=== PATIENT | female | born 1960 | race Caucasian/White ===

== ENCOUNTER 2016-09-23 13:54 | Outpatient (CLI) | payer MEDICARE, MEDICAID | END 2016-09-23 13:55 | disposition home or self-care (01) | DX: I10 Essential (primary) hypertension (principal); F17.210 Nicotine dependence, cigarettes, uncomplicated; D64.9 Anemia, unspecified ==

== ENCOUNTER 2017-11-02 10:12 | Outpatient (CLI) | payer MEDICARE, MEDICAID ==
[2017-11-02 13:05] LABS: BASOPHILS % (AUTO) 0.3 %; EOSINOPHILS # (AUTO) 0.2 10^3/uL (0.0-0.7); EOSINOPHILS % (AUTO) 1.8 %; HGB - HEMOGLOBIN 14.5 g/dL (12.0-16.0); LYMPHOCYTES # (AUTO) 2.7 10^3/uL (1.5-3.5); MEAN CORPUSCULAR HEMOGLOBIN 31.5 pg (27.0-31.0); MEAN CORPUSCULAR HGB CONC 33.7 g/dL (32.0-36.0); MEAN CORPUSCULAR VOLUME 93.4 fL (81.0-99.0); MEAN PLATELET VOLUME 9.4 fL (7.9-10.8); MONOCYTES # (AUTO) 0.4 10^3/uL (0.0-1.0); MONOCYTES % (AUTO) 4.1 %; NEUTROPHILS % (AUTO) 64.8 %; PLT - PLATELET COUNT 182 10^3/uL (130-450); RED CELL DISTRIBUTION WIDTH 13.1 % (12.0-15.0); WHITE BLOOD COUNT 9.2 x10^3/uL (4.8-10.8)
[2017-11-02 13:25] LABS: ALBUMIN 4.2 g/dL (3.2-5.5); ALBUMIN/GLOBULIN RATIO 1.8 (1.0-2.2); ALKALINE PHOSPHATASE 99 IU/L (42-121); ALT ALANINE AMINOTRANSFERASE 18 IU/L (10-60); AST ASPARTATE AMINOTRANSFERASE 18 IU/L (10-42); BILIRUBIN,TOTAL 0.5 mg/dL (0.2-1.0); BUN - BLOOD UREA NITROGEN 11 mg/dL (6-20); CALCIUM 9.8 mg/dL (8.5-10.3); CARBON DIOXIDE - CO2 25 mmol/L (21-32); CHLORIDE 105 mmol/L (101-111); CHOL/HDL RATIO 5.2 (<4.4); CHOLESTEROL 150 mg/dL; CREATININE 0.8 mg/dL (0.4-1.0); GFR - MDRD 75 (>89); GLUCOSE 100 mg/dL (70-100); HDL CHOLESTEROL 29 mg/dL; LDL CHOLESTEROL,CALCULATED 89 mg/dL; LDL/HDL RATIO 3.1 (<4.4); SODIUM 136 mmol/L (135-145); TOTAL PROTEIN 6.6 g/dL (6.7-8.2); VLDL CHOLESTEROL 32 mg/dL
[2017-11-02 13:51] LABS: HB2 TOTAL 16.3 g/dL; HEMOGLOBIN A1C 0.57 g/dL; HEMOGLOBIN A1C % 5.4 % (4.6-6.2)
== END 2017-11-02 10:13 | disposition home or self-care (01) ==
LOC: LAB.N 10:12
PROVIDERS: ATTEND Family Medicine
DX: I10 Essential (primary) hypertension (principal); R73.01 Impaired fasting glucose; G89.4 Chronic pain syndrome; E78.1 Pure hyperglyceridemia
CPT/HCPCS: 36415; 80053; 80061; 83036; 83721; 84443; 85025

== ENCOUNTER 2018-03-02 16:22 | Outpatient (CLI) | payer OTHER, MEDICARE, MEDICAID | END 2018-03-02 16:23 | disposition critical access hospital (66) | LOC: EMS 16:22 | PROVIDERS: ATTEND Surgery | DX: M54.5 Low back pain (principal); M25.511 Pain in right shoulder; V48.5XXA Car driver injured in noncollision transport accident in traffic accident, initial encounter; Y92.410 Unspecified street and highway as the place of occurrence of the external cause | CPT/HCPCS: A0425; A0429 ==

== ENCOUNTER 2018-03-02 16:51 | Emergency (ER) | payer OTHER, MEDICARE, MEDICAID ==
[2018-03-02] MEDS ORDERED: ACETAMINOPHEN 325 MG TABLET PO STA (17:13)
[2018-03-02] MEDS ORDERED: LIDOCAINE PATCH 5% TOP PRN (17:13)
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
[2018-03-02 17:29] VITALS: BP 105/67
== END 2018-03-02 17:46 | disposition home or self-care (01) ==
LOC: EDUNIT# → ED 16:51
DX: M54.5 Low back pain (principal); V89.2XXA Person injured in unspecified motor-vehicle accident, traffic, initial encounter; Z79.899 Other long term (current) drug therapy
CPT/HCPCS: 99283; A9270

== ENCOUNTER 2019-03-06 23:46 | Outpatient (CLI) | payer MEDICARE, MEDICAID | END 2019-03-06 23:47 | disposition EMS.NT | LOC: EMS 23:46 | PROVIDERS: ATTEND Surgery | DX: R05 Cough (principal) ==

== ENCOUNTER 2019-10-24 11:53 | Emergency (ER) | payer MEDICARE, MEDICAID ==
[2019-10-24 12:14] VITALS: BP 146/89
--- NOTE | 2019-10-24 12:33 | ED Physician Documentation ---
History of Present Illness - Stated complaint Stated Complaint: SORE THROAT/DENTAL - History obtained from History obtained from: Patient (58-year-old female comes in today with chief complaint of 1 week lower left dental pain, now having some swelling in the left mandible region. She fine was able to get into see her dentist today and he examined her and said that she needed to be seen by an oral surgeon to have the teeth extracted and sent her to the ER to get antibiotic treatment. Patient states that over the past week she denies fevers, nausea, vomiting, foul taste in her mouth, chills, chest pain, palpitations. She does admit to some sweating, but she said this is normal for her. She also has had a headache sporadically over the past week. She has been medicated with ibuprofen 800 mg 3-4 times a day, with some relief of the pain. She admits to having long his tory of dental issues, not having money or insurance to take care of them. She is here today hoping to get antibiotics until she can get into see an oral surgeon.) Review of Systems Constitutional: reports: Sweats (This is normal for her.). denies: Fever, Chills, Fatigue Eyes: reports: Reviewed and negative Ears: denies: Ear pain, Drainage/discharge Nose: reports: Sinus pressure / pain. denies: Rhinorrhea / runny nose, Congestion Throat: reports: Dental pain / toothache. 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 HEENT: Tonsil/Adenoidectomy - Present Medications Home Medications: Ambulatory Orders Medication Instructions Recorded Confirmed DULoxetine [Cymbalta] 90 mg PO DAILY 10/17/13 10/29/15 Lamotrigine 50 mg PO DAILY 10/17/13 08/24/15 Pregabalin [Lyrica] 600 mg PO DAILY PM 10/17/13 10/29/15 Lisinopril 20 mg PO QPM 06/28/14 10/29/15 [place] Carbonate 900 mg PO QPM 06/28/14 10/29/15 Lurasidone HCl [Latuda] 40 mg PO QPM 06/28/14 10/29/15 Prazosin [Minipress] 5 mg PO QPM 06/28/14 10/29/15 diazePAM [Diazepam] 5 mg PO TID PRN 06/28/14 10/29/15 Albuterol Sulf [Ventolin Hfa 2 puffs Q4H PRN 10/24/19 10/24/19 Inhaler] Fluticasone [Flonase] 1 spray DAILY 10/24/19 10/24/19 HYDROcod/ACETAM 5/325 [[place] 5/325] 1 each PO Q4H #12 tablet 10/24/19 Penicillin V Potassium 500 mg PO Q6HR #40 tablet 10/24/19 Pramipexole [Mirapex] 0.5 mg QPM 10/24/19 10/24/19 - Allergies Allergies/Adverse Reactions: Allergies Allergy/AdvReac Type Severity Reaction Status Date / Time NSAIDS (Non-Steroidal AdvReac Severe stomach Verified 10/24/19 12:14 Anti-Inflamma pain - Social History Does the pt smoke?: Yes Smoking Status: Current every day smoker Does the pt drink ETOH?: No Does the pt have substance abuse?: No - Immunizations Immunizations are current?: Yes - POLST Patient has POLST: No PD ED PE NORMAL - General General: Alert and oriented X 3, No acute distress, Well developed/nourished - HEENT HEENT: Atraumatic, PERRL, EOMI, Ears normal, Moist mucous membranes - Cardiac Cardiac: RRR, No murmur - Respiratory Respiratory: No respiratory distress, Clear bilaterally - Derm Derm: Normal color, Warm and dry, No rash PD ED PE EXPANDED - HEENT HEENT: Dental decay. No: Dental abscess Results - Vitals Vitals: Vital Signs - 24 hr 10/24/19 12:03 Temperature 35 C L Heart Rate 94 Respiratory 18 Rate Blood Pressure 146/89 H O2 Saturation 94 Oxygen O2 Source Room air PD MEDICAL DECISION MAKING - ED course Complexity details: d/w patient Departure - Departure Disposition: 01 Home, Self Care Clinical Impression: Dental infection Condition: Good Instructions: Decay Tooth, ED Abscess Tooth Follow-Up: James Rico DDS [Provider Admit Priv/Credential] - Prescriptions: Penicillin V Potassium 500 mg PO Q6HR #40 tablet HYDROcod/ACETAM 5/325 [[place] 5/325] 1 each PO Q4H #12 tablet Comments: You have a dental caries in the lower jaw, with tooth decay. Secondary to that you have an infection now. Like a dentist said you need to see an oral surgeon to have that tooth extracted. In the meantime we will start her on antibiotics to take 4 times a day for 10 days. Continue to take ibuprofen 3 times a day for pain control. He can also gargle with salt water to help reduce infection.
== END 2019-10-24 12:55 | disposition home or self-care (01) ==
LOC: ED 11:53
DX: K04.7 Periapical abscess without sinus (principal); K02.9 Dental caries, unspecified; I10 Essential (primary) hypertension; F17.200 Nicotine dependence, unspecified, uncomplicated
CPT/HCPCS: 99282; 99284

== ENCOUNTER 2020-09-16 08:00 | Outpatient (CLI) | payer MEDICARE, MEDICAID ==
[2020-09-16 17:52] LABS: BASOPHILS % (AUTO) 0.3 %; EOSINOPHILS # (AUTO) 0.1 10^3/uL (0.0-0.7); EOSINOPHILS % (AUTO) 1.4 %; HGB - HEMOGLOBIN 14.7 g/dL (12.0-16.0); LYMPHOCYTES % (AUTO) 34.9 %; MEAN CORPUSCULAR HEMOGLOBIN 31.3 pg (27.0-31.0); MEAN CORPUSCULAR VOLUME 95.1 fL (81.0-99.0); MEAN PLATELET VOLUME 11.1 fL (7.9-10.8); MONOCYTES # (AUTO) 0.4 10^3/uL (0.0-1.0); MONOCYTES % (AUTO) 4.8 %; NEUTROPHILS % (AUTO) 58.3 %; PLT - PLATELET COUNT 236 10^3/uL (130-450); RED BLOOD COUNT 4.69 10^6/uL (4.20-5.40); RED CELL DISTRIBUTION WIDTH 11.6 % (12.0-15.0); WHITE BLOOD COUNT 8.6 x10^3/uL (4.8-10.8)
[2020-09-16 18:13] LABS: ALBUMIN 4.3 g/dL (3.2-5.5); ALBUMIN/GLOBULIN RATIO 1.7 (1.0-2.2); ALKALINE PHOSPHATASE 122 IU/L (42-121); ALT ALANINE AMINOTRANSFERASE 19 IU/L (10-60); AST ASPARTATE AMINOTRANSFERASE 17 IU/L (10-42); BILIRUBIN,TOTAL 0.9 mg/dL (0.2-1.0); BUN - BLOOD UREA NITROGEN 11 mg/dL (6-20); CALCIUM 10.1 mg/dL (8.5-10.3); CARBON DIOXIDE - CO2 21 mmol/L (21-32); CHLORIDE 94 mmol/L (101-111); CHOL/HDL RATIO 6.4 (<4.4); CHOLESTEROL 216 mg/dL; CREATININE 0.7 mg/dL (0.4-1.0); GLUCOSE 287 mg/dL (70-100); HDL CHOLESTEROL 34 mg/dL; LDL CHOLESTEROL,CALCULATED 114 mg/dL; LDL/HDL RATIO 3.4 (<4.4); TOTAL PROTEIN 6.9 g/dL (6.7-8.2); VLDL CHOLESTEROL 68 mg/dL
[2020-09-16 20:15] LABS: HEMOGLOBIN A1c% 12.4 % (4.27-6.07)
== END 2020-09-16 23:59 | disposition home or self-care (01) ==
LOC: LAB.WCP 08:00
PROVIDERS: ATTEND Nurse Practitioner Family
DX: E78.1 Pure hyperglyceridemia (principal); I10 Essential (primary) hypertension; R73.01 Impaired fasting glucose; F31.30 Bipolar disorder, current episode depressed, mild or moderate severity, unspecified
CPT/HCPCS: 36415; 80053; 80061; 80178; 83036; 83721; 84443; 85025

== ENCOUNTER 2020-10-14 13:47 | Outpatient (CLI) | payer MEDICARE, MEDICAID ==
--- NOTE | 2020-10-16 08:38 | Mammography Report ---
BILATERAL DIGITAL SCREENING MAMMOGRAM: 10/14/2020 CLINICAL: Routine screening. No prior exams were available for comparison. There are scattered fibroglandular elements in both br easts. No significant masses, calcifications, or other findings are seen in either breast. IMPRESSION: NEGATIVE There is no mammographic evidence of malignancy. A 1 year screening mammogram is recommended. This exam was interpreted at Station ID: [id number]. NOTE: For mammograms, a report in lay terms will be sent to the patient. Approximately 15% of breast malignancies will not be visualized mammographically. In the management of a palpable breast mass, a negative mammogram must not discourage biopsy of a clinically suspicious lesion. Electronically Signed By: Luke flores/raisa:10/14/2020 15:25:18 ACR BI-RADS Category 1: Negative 3341F PARENCHYMAL PATTERN: (A) - The breast(s) demonstrate(s) scattered fibroglandular densities. BI-RADS CATEGORY: (1) - 1 RECOMMENDATION: (ANNUAL) - Recommend routine annual screening mammography. [id number] 1 year screening LATERALITY: (B)
== END 2020-10-14 13:48 | disposition home or self-care (01) ==
LOC: DI.N 13:47
DX: Z12.31 Encounter for screening mammogram for malignant neoplasm of breast (principal)

== ENCOUNTER 2020-12-12 08:00 | Outpatient (CLI) | payer MEDICARE, MEDICAID ==
[2020-12-12 18:03] LABS: CALCIUM 10.7 mg/dL (8.5-10.3); CREATININE 0.7 mg/dL (0.4-1.0); POTASSIUM 4.6 mmol/L (3.5-5.0)
[2020-12-12 20:41] LABS: ESTIMATED AVERAGE GLUCOSE 212 mg/dL (70-100)
== END 2020-12-12 23:59 | disposition home or self-care (01) ==
LOC: LAB.WCP 08:00
PROVIDERS: ATTEND Nurse Practitioner Family
DX: E11.9 Type 2 diabetes mellitus without complications (principal)
CPT/HCPCS: 36415; 80048; 83036

== ENCOUNTER 2021-03-17 15:52 | Outpatient (CLI) | payer MEDICARE, MEDICAID ==
[2021-03-17] MEDS ORDERED: IOVERSOL 320 50 ML VIAL ONE (15:58)
[2021-03-17] MEDS ORDERED: IOPAMIDOL-300 100 ML VIAL ONE (15:58)
[2021-03-17 16:13] LABS: CREATININE 0.8 mg/dL (0.4-1.0); GFR - MDRD 74 (>89)
[2021-03-17] MEDS ORDERED: IOPAMIDOL-300 100 ML VIAL IVP ONE (17:27)
[2021-03-17] MEDS ORDERED: IOVERSOL 320 50 ML VIAL PO ONE (17:28)
--- NOTE | 2021-03-17 17:31 | CT Report ---
PROCEDURE: Abdomen/Pelvis W INDICATIONS: ABDOMINAL PAIN,ACUTE CONTRAST: IV CONTRAST: Isovue 300 ml: 100 PO CONTRAST: Optiray 320 ml50 TECHNIQUE: After the administration of contrast, 5 mm thick sections acquired from the diaphragms to the sym physis. 5 mm thick coronal and sagittal reformats were acquired. For radiation dose reduction, the following was used: automated exposure control, adjustment of mA and/or kV according to patient size . COMPARISON: None. FINDINGS: Image quality: Excellent. ABDOMEN: Lung bases: Lung bases are clear. Heart size is normal. Solid organs: Liver and spleen are normal in size and enhancement. Gallbladder the gallbladder cont ains multiple internal moderately large faintly peripherally calcified gallstones. No acute cholecyst itis or biliary obstruction. Biliary system is non dilated. Pancreas enhances normally. No adrenal nodules. Kidneys demonstrate normal size and enhancement, without hydronephrosis. Peritoneum and bowel: Bowel loops demonstrate normal wall thickness and caliber. No free fluid or a ir. Nodes and vessels: No retroperitoneal or mesenteric adenopathy by size criteria. Aorta and inferior vena cava are normal in size. Miscellaneous: No ventral hernias. PELVIS: Genitourinary: Bladder wall thickness is normal. Miscellaneous: No inguinal hernias or adenopathy. There is a very large cystic septated mass lesion within the lower pelvis, extending cephalad slightly greater on the right than the left, this has a maximal AP and transverse dimension of 19.7 cm and 27.2 cm, respectively. The craniocaudad dimension of this structure is up to 24.6 cm. Bones: No suspicious bony lesions. No vertebral body compression fractures. IMPRESSION: Very large septated cystic mass within the lower pelvis projecting cephalad out of the p aaron slightly more on the right than the left which would indicate potential for right ovarian cysti c benign or malignant neoplasm. There is no evidence of metastatic disease, however. Findings called to the ordering health care provider. Oncologic surgical intervention is anticipated. Reviewed by: Renny Yeager MD on 03/17/2021 5:30 PM PDT Approved by: Renny Yeager MD on 03/17/2021 5:30 PM PDT Station ID: [id number]
[2021-03-19 08:17] LABS: ALBUMIN 3.9 g/dL (3.2-5.5); ALBUMIN/GLOBULIN RATIO 1.3 (1.0-2.2); ALKALINE PHOSPHATASE 114 IU/L (42-121); ALT ALANINE AMINOTRANSFERASE 42 IU/L (10-60); AMYLASE 27 U/L (28-100); AST ASPARTATE AMINOTRANSFERASE 41 IU/L (10-42); BILIRUBIN,TOTAL 0.5 mg/dL (0.2-1.0); BUN - BLOOD UREA NITROGEN 13 mg/dL (6-20); CALCIUM 10.8 mg/dL (8.5-10.3); CARBON DIOXIDE - CO2 21 mmol/L (21-32); CHLORIDE 108 mmol/L (101-111); CHOL/HDL RATIO 6.8 (<4.4); CHOLESTEROL 224 mg/dL; GLUCOSE 170 mg/dL (70-100); HDL CHOLESTEROL 33 mg/dL; LDL CHOLESTEROL,CALCULATED 134 mg/dL; LDL/HDL RATIO 4.1 (<4.4); LIPASE 67 U/L (22-51); POTASSIUM 4.5 mmol/L (3.5-5.0); SODIUM 140 mmol/L (135-145); TRIGLYCERIDES 286 mg/dL; VLDL CHOLESTEROL 57 mg/dL
[2021-03-19 08:22] LABS: THYROID STIMULATING HORMONE 1.97 uIU/mL (0.34-5.60)
== END 2021-03-17 15:53 | disposition home or self-care (01) ==
LOC: DI 15:52
PROVIDERS: ATTEND Nurse Practitioner
DX: R19.00 Intra-abdominal and pelvic swelling, mass and lump, unspecified site (principal); R10.9 Unspecified abdominal pain
CPT/HCPCS: 36415; 74177; 80053; 80061; 82150; 83690; Q9967; 82565; 83721; 84443

== ENCOUNTER 2021-03-19 16:45 | Outpatient (CLI) | payer MEDICARE, MEDICAID ==
[2021-03-19 20:50] LABS: BILIRUBIN,URINE NEGATIVE (NEGATIVE); GLUCOSE, URINE (UA) >=1000 mg/dL (NEGATIVE); KETONES,URINE (UA) NEGATIVE (NEGATIVE); LEUKOCYTE ESTERASE, URINE NEGATIVE (NEGATIVE); NITRITE,URINE NEGATIVE (NEGATIVE); OCCULT BLOOD,URINE NEGATIVE (NEGATIVE); PROTEIN,URINE NEGATIVE (NEGATIVE); UROBILINOGEN,URINE 1 (NORMAL) E.U./dL (NORMAL)
[2021-03-19 20:51] LABS: CLARITY,URINE CLEAR (CLEAR)
[2021-03-19 20:57] LABS: BASOPHILS # (AUTO) 0.1 10^3/uL (0.0-0.1); BASOPHILS % (AUTO) 0.5 %; EOSINOPHILS # (AUTO) 0.2 10^3/uL (0.0-0.7); EOSINOPHILS % (AUTO) 1.6 %; HCT - HEMATOCRIT 49.7 % (37.0-47.0); HGB - HEMOGLOBIN 15.4 g/dL (12.0-16.0); LYMPHOCYTES # (AUTO) 3.5 10^3/uL (1.5-3.5); LYMPHOCYTES % (AUTO) 27.4 %; MEAN CORPUSCULAR HEMOGLOBIN 30.3 pg (27.0-31.0); MEAN CORPUSCULAR VOLUME 97.8 fL (81.0-99.0); MONOCYTES # (AUTO) 0.6 10^3/uL (0.0-1.0); MONOCYTES % (AUTO) 4.8 %; NEUTROPHILS # (AUTO) 8.4 10^3/uL (1.5-6.6); NEUTROPHILS % (AUTO) 65.2 %; PLT - PLATELET COUNT 276 10^3/uL (130-450); RED BLOOD COUNT 5.08 10^6/uL (4.20-5.40); RED CELL DISTRIBUTION WIDTH 12.8 % (12.0-15.0); WHITE BLOOD COUNT 12.8 x10^3/uL (4.8-10.8)
[2021-03-19 21:03] LABS: ALBUMIN 4.2 g/dL (3.2-5.5); ALBUMIN/GLOBULIN RATIO 1.7 (1.0-2.2); BILIRUBIN,TOTAL 0.4 mg/dL (0.2-1.0); CALCIUM 10.4 mg/dL (8.5-10.3); CREATININE 0.9 mg/dL (0.4-1.0); POTASSIUM 4.1 mmol/L (3.5-5.0); TOTAL PROTEIN 6.7 g/dL (6.7-8.2)
== END 2021-03-19 16:46 | disposition home or self-care (01) ==
LOC: LAB.N 16:45
PROVIDERS: ATTEND Nurse Practitioner
DX: R10.9 Unspecified abdominal pain (principal)
CPT/HCPCS: 36415; 80053; 81001; 81003; 85025; 87086

== ENCOUNTER 2021-04-07 08:00 | Outpatient (CLI) | payer MEDICARE, MEDICAID ==
[2021-04-07 17:50] LABS: BILIRUBIN,URINE NEGATIVE (NEGATIVE); GLUCOSE, URINE (UA) NEGATIVE (NEGATIVE); KETONES,URINE (UA) NEGATIVE (NEGATIVE); LEUKOCYTE ESTERASE, URINE NEGATIVE (NEGATIVE); NITRITE,URINE NEGATIVE (NEGATIVE); OCCULT BLOOD,URINE NEGATIVE (NEGATIVE); PH,URINE 6.5 PH (5.0-7.5); PROTEIN,URINE 30 mg/dL (NEGATIVE); UROBILINOGEN,URINE 0.2 (NORMAL) E.U./dL (NORMAL)
[2021-04-07 17:52] LABS: BASOPHILS # (AUTO) 0.1 10^3/uL (0.0-0.1); BASOPHILS % (AUTO) 0.5 %; EOSINOPHILS # (AUTO) 0.1 10^3/uL (0.0-0.7); HCT - HEMATOCRIT 43.6 % (37.0-47.0); HGB - HEMOGLOBIN 13.6 g/dL (12.0-16.0); LYMPHOCYTES # (AUTO) 3.1 10^3/uL (1.5-3.5); MEAN CORPUSCULAR HEMOGLOBIN 30.2 pg (27.0-31.0); MEAN CORPUSCULAR HGB CONC 31.2 g/dL (32.0-36.0); MEAN CORPUSCULAR VOLUME 96.7 fL (81.0-99.0); MEAN PLATELET VOLUME 11.3 fL (7.9-10.8); MONOCYTES # (AUTO) 0.6 10^3/uL (0.0-1.0); MONOCYTES % (AUTO) 4.6 %; NEUTROPHILS % (AUTO) 69.5 %; PLT - PLATELET COUNT 262 10^3/uL (130-450); RED BLOOD COUNT 4.51 10^6/uL (4.20-5.40); RED CELL DISTRIBUTION WIDTH 13.1 % (12.0-15.0)
[2021-04-07 17:58] LABS: CLARITY,URINE CLEAR (CLEAR); RBC,URINE 0-5 /HPF (0-5); SQUAMOUS EPITHELIAL CELL,UR MOD Squamous (<= Few); WBC,URINE 0-3 /HPF (0-5)
[2021-04-07 17:59] LABS: BACTERIA,URINE Few /HPF (None Seen); MUCUS,URINE Moderate Strands
[2021-04-07 18:09] LABS: ALBUMIN 3.9 g/dL (3.2-5.5); ALBUMIN/GLOBULIN RATIO 1.3 (1.0-2.2); BILIRUBIN,TOTAL 0.5 mg/dL (0.2-1.0); CALCIUM 10.8 mg/dL (8.5-10.3); CREATININE 0.7 mg/dL (0.4-1.0); POTASSIUM 4.4 mmol/L (3.5-5.0); TOTAL PROTEIN 6.8 g/dL (6.7-8.2)
[2021-04-07 18:23] LABS: CREATININE,URINE 118.4 mg/dL; MICROALBUM/CREATININE RATIO,UR 365.7 ug/mg (<30.0); MICROALBUMIN,URINE 43.3 mg/dL (0-300.0)
[2021-04-07 20:27] LABS: ESTIMATED AVERAGE GLUCOSE 154 mg/dL (70-100)
== END 2021-04-07 23:59 | disposition home or self-care (01) ==
LOC: LAB.WCP 08:00
PROVIDERS: ATTEND Nurse Practitioner
DX: R19.00 Intra-abdominal and pelvic swelling, mass and lump, unspecified site (principal); E11.9 Type 2 diabetes mellitus without complications
CPT/HCPCS: 36415; 80053; 81001; 82043; 82570; 83036; 85025; 86304; 87086

== ENCOUNTER 2021-04-16 10:28 | Outpatient (CLI) | payer MEDICARE, MEDICAID ==
[2021-04-16] MEDS ORDERED: AMINOPHYLLINE 500 MG/20 ML VIAL ONE (12:57)
[2021-04-16] MEDS ORDERED: REGADENOSON 0.4 MG/5 ML SYRINGE IVP ONE ×2 (12:57→16:14)
--- NOTE | 2021-04-16 12:57 | CARDIAC PROCEDURE NOTE ---
Stress Test Report Service Date: 04/16/21 Service Time: 12:30 Ordering Provider: Cristiana Quintana ARNP Indication for Test: Cardiac risk stratification for patient with multiple risk factors and reportedly abnormal EKG, in preparation for exploratory laparotomy for abdominal mass. Significant Medical History: -Martina reports limited exertional tolerance over several years, primarily in due to back and hip pain. About 6 months ago she was diagnosed with diabetes and trialed on several medications, one of which (Jardiance) was associated with abdominal pain. CT imaging revealed a large abdomino-pelvic mass, suspicious for ovarian origin, and for which exploratory laparotomy is beng planned. EKG that was obtained was reportedly concerning for prior myocardial infarction. -She reports progressive decrease in exertional tolerance over the past ~2 months, which limits her even further than before. She experiences dyspnea with mild exertion, but denies chest/throat/epigastric discomfort, as well as orthopnea, PND and ankle edema. She is cutting down on cigarette intake, and obtains some benefit from prn albuterol use. Cardiac Risk Factors: Martina has history of hypertension treated for at least 5 years, cigarette smoking for about 12 years (trying to quit), hyperlipidemia (not on statin) and recently (~6 months) diagnosed diabetes. She is unaware of close relatives having ASCVD history. Type of Stress Test: Pharmacologic Stress Test with MPI Pharmacologic Agent: Lexiscan Procedure: -Pharmacologic Stress Test- After signing informed consent, the patient underwent rest SPECT imaging, followed by a walking Lexiscan pharmacologic stress test. The test was terminated due to completing the protocol. Resting heart rate: 121 Peak heart rate: 158 Resting tachycardia with exaggerated HR response. Resting BP: 126/74 (after walking) Peak BP: 119/55 Normal BP response. Rhythm during testing: Sinus rhythm throughout. Symptoms: Very slight lightheadedness. EKG at rest showed normal sinus rhythm, diffusely low QRS voltages and left axis deviation, latter possibly due to left anterior fascicular block (LAFB) versus prior inferior infarct; there is also abnormal precordial R wave progression, that could also be a result of LAFB versus prior anterior infarct. EKG at peak stress showed no ischemia by EKG criteria. In Recovery heart rate gradually returned towards resting level. Nuclear imaging was performed at rest and with stress. The images are to be reported separately. IMarco MD, was present throughout this Lexiscan stress study and supervised it in all aspects. Summary: 1) Abnormal resting EKG. 2) Adequate stress was likely achieved. 3) Normal BP response to pharmacologic stress agent. 4) No ischemic changes by EKG criteria were seen at peak stress. 5) Nuclear image interpretation revealed normal left ventricular size and wall motion by gated analysis, with normal range ejection fraction; by SPECT analysis there were no perfusion defects at rest or with stress, indicative of no prior infarct nor inducible ischemia. See separate report for more detail. CONCLUSIONS: 1) Low risk Lexiscan vasodilator stress study. 2) EKG abnormalities likely due to left anterior fascicular block conduction abnormality.
--- NOTE | 2021-04-20 09:14 | Nuclear Medicine Report ---
PROCEDURE: Rest and exercise myocardial perfusion SPECT with gated imaging and ejection fraction INDICATIONS: ABNORMAL EKG RADIOPHARMACEUTICAL: 12.1 mCi Tc-99m Myoview IV at rest and 40.2 mCi Tc-99m Myoview IV at peak stres s. [id number] with Esequiel was performed. TECHNIQUE: Radiopharmaceutical was injected at peak stress test, and also at rest. SPECT images wer e obtained. SPECT myocardial perfusion images were displayed in short axis, horizontal long axis, an d vertical long axis views. Gated images were reviewed using Auto[employer] software. COMPARISON: None available. FINDINGS: Raw data: There is good myocardial labeling by radiotracer. No significant motion artifacts. Lung- to-heart ratio is 0.43 (normal is less than 0.46 for tetrafosmin tracer). Left ventricle function: Gated images demonstrate normal left ventricle wall thickening. No segment al wall motion abnormality. No transient ischemic dilation; TID is 0.94 (normal less than 1.30). Th e left ventricle resting end-diastolic volume is 37 mL. Left ventricle stress ejection fraction is 7 8%; normal values are above 45%. Myocardial perfusion: There is normal distribution of activity in the left and right ventricular gaetano cardium. No fixed or reversible perfusion defects. IMPRESSION: 1. No stress perfusion defect to indicate ischemia. 2. Ejection fraction 78%. 3. No definitive EKG changes of acute ischemia. PQRS ATTESTATIONS: Measure 322 - Is this imaging test primarily performed on a low-risk surgery patient for preoperative evaluation within 30 days preceding their low-risk non-cardiac surgery? Low-risk surgery is defined as cardiac or myocardial infarction less than 1%, including (but not limited EKG changes of is chemia. To) endoscopic procedures, superficial procedures, cataract surgery, and excisional breast [place] rgery: Answer: No Measure 323 - Is this imaging test performed primarily for the monitoring of an asymptomatic patient who had percutaneous coronary intervention on the visit date or within 2 years of the visit date? An swer: No Measure 324 - Is this imaging test performed primarily for the initial detection and risk assessment on an asymptomatic, low coronary heart disease patient? Low CHD risk definition = clinicians should consider the maximum number of available patient factors used to estimate risk based on [place] (A TP III criteria), typically age, gender, diabetes, smoking status, and use of blood pressure medicati on, and integrate age appropriate estimates for missing elements, such as LDL or standard blood press ure. Answer: No Reviewed by: Cecy Rios MD on 04/20/2021 9:13 AM PDT Approved by: Cecy Rios MD on 04/20/2021 9:13 AM PDT Station ID: [id number]
== END 2021-04-16 10:29 | disposition home or self-care (01) ==
LOC: DI 10:28
PROVIDERS: ATTEND Nurse Practitioner
DX: R94.31 Abnormal electrocardiogram [ECG] [EKG] (principal); I10 Essential (primary) hypertension; F17.210 Nicotine dependence, cigarettes, uncomplicated; E78.5 Hyperlipidemia, unspecified; E11.9 Type 2 diabetes mellitus without complications
CPT/HCPCS: 78452; 93017; A9500; J2785

== ENCOUNTER 2021-04-22 16:28 | Outpatient (CLI) | payer MEDICARE, MEDICAID | END 2021-04-22 16:29 | disposition short-term general hospital (02) | LOC: EMS 16:28 | DX: I95.9 Hypotension, unspecified (principal); R17 Unspecified jaundice; H15.89 Other disorders of sclera | CPT/HCPCS: A0425; A0427 ==

== ENCOUNTER 2021-05-20 21:58 | Outpatient (CLI) | payer MEDICARE, MEDICAID | END 2021-05-20 21:59 | disposition critical access hospital (66) | LOC: EMS 21:58 | DX: H55.89 Other irregular eye movements (principal); R46.89 Other symptoms and signs involving appearance and behavior | CPT/HCPCS: A0425; A0429 ==

== ENCOUNTER 2021-05-20 22:14 | Emergency (ER) | payer MEDICARE, MEDICAID ==
[2021-05-20] MEDS ORDERED: SODIUM CHLORIDE 0.9% 1,000 ML IV STA (22:17)
--- NOTE | 2021-05-20 22:19 | ED Physician Documentation ---
History of Present Illness - Stated complaint Stated Complaint: AMS, FIXED RIGHT GAZE - History obtained from History obtained from: Patient, EMS - Additonal information Additional information: 60yF with pmh DM, recently diagnosed pancreatic cancer (not currently in treatment) bibems with 4 hours of AMS and L upward gaze deviation as well as fever detected by EMS. significant other Edinson called ems due to confusion symptoms developing acutely. Note that ems states the significant other was intoxicated with alcohol on their arrival. patient also with septic vital signs on ems arrival. no other neuro deficits noted. patient speaking normally, moving all extremities, AOX3. Her main complaint is abdominal pain she says is ongoing the past few days, diffuse, constant, aching, a/w swelling. also with abscessed tooth X 2 weeks per another family member. stroke code called in the field. further history limited by patient acuity. Review of Systems Unable to obtain: Other (unable to obtain 2/2 acuity) PD PAST MEDICAL HISTORY - Past Medical History Cardiovascular: Hypertension Respiratory: Asthma Psych: Depression, Anxiety, Panic attacks, Claustrophobia Musculoskeletal: Fibromyalgia, Fatigue, Scoliosis, Chronic back pain - Past Surgical History Past Surgical History: Yes /[facility]: Hysterectomy HEENT: Tonsil/Adenoidectomy - Present Medications Home Medications: Ambulatory Orders Medication Instructions Recorded Confirmed DULoxetine [Cymbalta] 30 mg PO DAILY 10/17/13 05/20/21 Lamotrigine 50 mg PO DAILY 10/17/13 05/20/21 Pregabalin [Lyrica] 150 - 300 mg PO DAILY PM 10/17/13 05/20/21 [place] Carbonate 900 mg PO QPM 06/28/14 05/20/21 Lurasidone HCl [Latuda] 40 mg PO QPM 06/28/14 05/20/21 diazePAM [Diazepam] 5 mg PO QID 06/28/14 05/20/21 Albuterol Sulf [Ventolin Hfa 2 puffs Q4H PRN 10/24/19 05/20/21 Inhaler] Fluticasone [Flonase] 1 spray DAILY 10/24/19 05/20/21 HYDROcod/ACETAM 5/325 [[place] 5/325] 1 each PO Q4H #12 tablet 10/24/19 05/20/21 Pramipexole [Mirapex] 0.5 mg QPM 10/24/19 05/20/21 - Allergies Allergies/Adverse Reactions: Allergies Allergy/AdvReac Type Severity Reaction Status Date / Time NSAIDS (Non-Steroidal AdvReac Severe stomach Verified 05/20/21 22:23 Anti-Inflamma pain - Social History Does the pt smoke?: Yes Smoking Status: Current every day smoker Does the pt drink ETOH?: No Does the pt have substance abuse?: No - Immunizations Immunizations are current?: Yes - POLST Patient has POLST: No PD ED PE NORMAL - Vitals Vital signs reviewed: Yes - General General: Alert and oriented X 3, No acute distress, Well developed/nourished, Other - HEENT HEENT: Atraumatic, PERRL, EOMI, Moist mucous membranes, Pharynx benign (poor dentition. no fluctuance or significant swelling), Other (distinct L upward gaze deviation that is easily overcome when patient follows finger for EOMI test.) - Neck Neck: Supple, no meningeal sign - Cardiac Cardiac: RRR - Respiratory Respiratory: No respiratory distress, Clear bilaterally - Abdomen Abdomen: Other (abdomen tight, distended, with discomfort to palpation) - Back Back: No CVA TTP - Derm Derm: Normal color - Extremities Extremities: No deformity - Neuro Neuro: Alert and oriented X 3, principal examiner 2-12 intact, Normal speech, Other (L upward gaze deviation. otherwise no motor or sensory deficits. ) Eye Opening: Spontaneous Motor: Obeys Commands Verbal: Oriented GCS Score: 15 - Psych Psych: Normal mood, Normal affect Results - Vitals Vitals: Vital Signs - 24 hr 05/20/21 05/20/21 05/20/21 22:36 22:39 23:06 Temperature 38.3 C H 38.3 C H Heart Rate 124 H 124 H 124 H Respiratory 22 22 22 Rate Blood Pressure 131/70 H 131/70 H 109/72 O2 Saturation 98 98 98 05/20/21 05/21/21 05/21/21 23:30 00:00 00:30 Temperature 38.1 C H Heart Rate 121 H 123 H 121 H Respiratory 22 26 H 29 H Rate Blood Pressure 127/68 114/67 120/66 O2 Saturation 97 96 94 05/21/21 05/21/21 05/21/21 01:00 01:10 01:30 Temperature Heart Rate 120 H 112 H Respiratory 22 24 23 Rate Blood Pressure 106/58 L 110/60 O2 Saturation 88 L 96 94 05/21/21 05/21/21 05/21/21 02:00 02:30 03:00 Temperature 37.2 C Heart Rate 113 H 114 H 114 H Respiratory 24 26 H 24 Rate Blood Pressure 110/62 113/66 106/60 O2 Saturation 94 96 95 05/21/21 05/21/21 05/21/21 03:30 04:00 04:30 Temperature 37.0 C Heart Rate 114 H 111 H 112 H Respiratory 26 H 25 H 27 H Rate Blood Pressure 107/66 97/60 103/61 O2 Saturation 94 95 98 05/21/21 05/21/21 05/21/21 05:00 05:30 06:00 Temperature 37.1 C Heart Rate 115 H 117 H 113 H Respiratory 23 25 H 22 Rate Blood Pressure 107/60 106/67 109/64 O2 Saturation 95 97 96 05/21/21 05/21/21 05/21/21 06:40 07:00 07:10 Temperature Heart Rate 119 H 123 H 125 H Respiratory 24 28 H 27 H Rate Blood Pressure 102/60 109/71 O2 Saturation 98 93 Oxygen O2 Source Nasal cannula - EKG (time done) 2228 Rate: Rate (enter#) (123) Rhythm: Sinus tachycardia [place]: LAD Intervals: Normal IN QRS: Normal Ischemia: Normal ST segments - Labs Labs: Microbiology 05/21/21 02:02 Occult Blood - Final Stool Laboratory Tests 05/20/21 05/20/21 05/20/21 22:35 22:35 22:35 WBC RBC Hgb Hct MCV MCH MCHC RDW Plt Count MPV Neut # (Auto) Lymph # (Auto) Mcminn # (Auto) Eos # (Auto) Baso # (Auto) Absolute Nucleated RBC Nucleated RBC % PT INR APTT VBG pH VBG pCO2 VBG pO2 VBG HCO3 VBG Total CO2 VBG O2 Saturation VBG Base Excess Sodium 131 L Potassium 4.0 Chloride 101 Carbon Dioxide 20 L Anion Gap 10.0 BUN 12 Creatinine 0.6 Estimated GFR (MDRD) 103 Glucose 115 H Lactic Acid 1.1 Calcium 9.4 Total Bilirubin 1.2 H AST 21 ALT 16 Alkaline Phosphatase 151 H Troponin I High Sens 3.7 Total Protein 5.8 L Albumin 3.2 Globulin 2.6 Albumin/Globulin Ratio 1.2 Lipase 64 H Urine Color Urine Clarity Urine pH Ur Specific [place] Urine Protein Urine Glucose (UA) Urine Ketones Urine Occult Blood Urine Nitrite Urine Bilirubin Urine Urobilinogen Ur Leukocyte Esterase Urine RBC Urine WBC Ur Squamous Epith Cells Urine Bacteria Urine Culture Comments Nasal Adenovirus (PCR) Nasal B. parapertussis DNA (PCR) Nasal Coronavir 229E PCR Nasal Coronavir HKU1 PCR Nasal Coronavir NL63 PCR Nasal Coronavir OC43 PCR Nasal Enterovir/Rhinovir PCR Nasal Influenza B PCR Nasal Influenza A PCR Nasal Parainfluen 1 PCR Nasal Parainfluen 2 PCR Nasal Parainfluen 3 PCR Nasal Parainfluen 4 PCR Nasal RSV (PCR) Nasal B.pertussis DNA PCR Nasal C.pneumoniae (PCR) Octavio Human Metapneumo PCR Nasal M.pneumoniae (PCR) Nasal SARS-CoV-2 (PCR) 05/20/21 05/20/21 05/20/21 22:35 22:35 22:43 WBC 14.6 H RBC 3.00 L Hgb 9.4 L Hct 29.2 L MCV 97.3 MCH 31.3 H MCHC 32.2 RDW 15.8 H Plt Count 277 MPV 9.6 Neut # (Auto) 13.4 H Lymph # (Auto) 0.5 L Mcminn # (Auto) 0.7 Eos # (Auto) 0.0 Baso # (Auto) 0.0 Absolute Nucleated RBC 0.00 Nucleated RBC % 0.0 PT 14.6 H INR 1.3 H APTT 22.9 L VBG pH 7.489 H VBG pCO2 26.5 L VBG pO2 71.5 H VBG HCO3 19.7 L VBG Total CO2 20.5 L VBG O2 Saturation 95.5 H VBG Base Excess -2.7 L Sodium Potassium Chloride Carbon Dioxide Anion Gap BUN Creatinine Estimated GFR (MDRD) Glucose Lactic Acid Calcium Total Bilirubin AST ALT Alkaline Phosphatase Troponin I High Sens Total Protein Albumin Globulin Albumin/Globulin Ratio Lipase Urine Color Urine Clarity Urine pH Ur Specific [place] Urine Protein Urine Glucose (UA) Urine Ketones Urine Occult Blood Urine Nitrite Urine Bilirubin Urine Urobilinogen Ur Leukocyte Esterase Urine RBC Urine WBC Ur Squamous Epith Cells Urine Bacteria Urine Culture Comments Nasal Adenovirus (PCR) Nasal B. parapertussis DNA (PCR) Nasal Coronavir 229E PCR Nasal Coronavir HKU1 PCR Nasal Coronavir NL63 PCR Nasal Coronavir OC43 PCR Nasal Enterovir/Rhinovir PCR Nasal Influenza B PCR Nasal Influenza A PCR Nasal Parainfluen 1 PCR Nasal Parainfluen 2 PCR Nasal Parainfluen 3 PCR Nasal Parainfluen 4 PCR Nasal RSV (PCR) Nasal B.pertussis DNA PCR Nasal C.pneumoniae (PCR) Octavio Human Metapneumo PCR Nasal M.pneumoniae (PCR) Nasal SARS-CoV-2 (PCR) 05/20/21 05/21/21 05/21/21 23:04 00:28 00:59 WBC RBC Hgb Hct MCV MCH MCHC RDW Plt Count MPV Neut # (Auto) Lymph # (Auto) Mcminn # (Auto) Eos # (Auto) Baso # (Auto) Absolute Nucleated RBC Nucleated RBC % PT INR APTT VBG pH VBG pCO2 VBG pO2 VBG HCO3 VBG Total CO2 VBG O2 Saturation VBG Base Excess Sodium Potassium Chloride Carbon Dioxide Anion Gap BUN Creatinine Estimated GFR (MDRD) Glucose Lactic Acid Calcium Total Bilirubin AST ALT Alkaline Phosphatase Troponin I High Sens Total Protein Albumin 3.0 L Globulin Albumin/Globulin Ratio Lipase Urine Color YELLOW Urine Clarity CLEAR Urine pH 7.0 Ur Specific [place] 1.010 Urine Protein NEGATIVE Urine Glucose (UA) NEGATIVE Urine Ketones NEGATIVE Urine Occult Blood SMALL H Urine Nitrite NEGATIVE Urine Bilirubin NEGATIVE Urine Urobilinogen 1 (NORMAL) Ur Leukocyte Esterase NEGATIVE Urine RBC 6-10 H Urine WBC 0-3 Ur Squamous Epith Cells RARE Squamous Urine Bacteria Rare Urine Culture Comments NOT INDICATED Nasal Adenovirus (PCR) NOT DETECTED Nasal B. parapertussis DNA (PCR) NOT DETECTED Nasal Coronavir 229E PCR NOT DETECTED Nasal Coronavir HKU1 PCR NOT DETECTED Nasal Coronavir NL63 PCR NOT DETECTED Nasal Coronavir OC43 PCR NOT DETECTED Nasal Enterovir/Rhinovir PCR NOT DETECTED Nasal Influenza B PCR NOT DETECTED Nasal Influenza A PCR NOT DETECTED Nasal Parainfluen 1 PCR NOT DETECTED Nasal Parainfluen 2 PCR NOT DETECTED Nasal Parainfluen 3 PCR NOT DETECTED Nasal Parainfluen 4 PCR NOT DETECTED Nasal RSV (PCR) NOT DETECTED Nasal B.pertussis DNA PCR NOT DETECTED Nasal C.pneumoniae (PCR) NOT DETECTED Octavio Human Metapneumo PCR NOT DETECTED Nasal M.pneumoniae (PCR) NOT DETECTED Nasal SARS-CoV-2 (PCR) NOT DETECTED 05/21/21 06:00 WBC RBC Hgb Hct MCV MCH MCHC RDW Plt Count MPV Neut # (Auto) Lymph # (Auto) Mcminn # (Auto) Eos # (Auto) Baso # (Auto) Absolute Nucleated RBC Nucleated RBC % PT INR APTT VBG pH VBG pCO2 VBG pO2 VBG HCO3 VBG Total CO2 VBG O2 Saturation VBG Base Excess Sodium Potassium Chloride Carbon Dioxide Anion Gap BUN Creatinine Estimated GFR (MDRD) Glucose Lactic Acid 0.8 Calcium Total Bilirubin AST ALT Alkaline Phosphatase Troponin I High Sens Total Protein Albumin Globulin Albumin/Globulin Ratio Lipase Urine Color Urine Clarity Urine pH Ur Specific [place] Urine Protein Urine Glucose (UA) Urine Ketones Urine Occult Blood Urine Nitrite Urine Bilirubin Urine Urobilinogen Ur Leukocyte Esterase Urine RBC Urine WBC Ur Squamous Epith Cells Urine Bacteria Urine Culture Comments Nasal Adenovirus (PCR) Nasal B. parapertussis DNA (PCR) Nasal Coronavir 229E PCR Nasal Coronavir HKU1 PCR Nasal Coronavir NL63 PCR Nasal Coronavir OC43 PCR Nasal Enterovir/Rhinovir PCR Nasal Influenza B PCR Nasal Influenza A PCR Nasal Parainfluen 1 PCR Nasal Parainfluen 2 PCR Nasal Parainfluen 3 PCR Nasal Parainfluen 4 PCR Nasal RSV (PCR) Nasal B.pertussis DNA PCR Nasal C.pneumoniae (PCR) Octavio Human Metapneumo PCR Nasal M.pneumoniae (PCR) Nasal SARS-CoV-2 (PCR) PD MEDICAL DECISION MAKING - ED course ED course: stroke code called in the field. patient with L upward gaze deviation, AMS, septic vital signs, hx pancreatic cancer. moving all extremities on command. no other neuro deficits noted on immediate eval. patient went straight to CT. 11pm - d/w Dr. Mattson re: my concern for mets in the brain and possible acute bleed in R frontal region. he will review scans and call back. 11:05pm- d/w Dr. Mattson, teleneurology - appears to be R frontal meningioma, not seen in 2014. recommend starting 1 g keppra, and get f/u MRI when possible. no indication for tPA at this time. no areas for intervention on CTA so not a thrombectomy candidate. will try to transfer to [facility] where she's getting her oncology care. 1:20am - unable to get a hold of hospitalist at [facility]. Transfer center states there are 13 people ahead of our patient on the waitlist. d/w [facility] oncologist is consultant Dr. Mccrary who was able to find Martina Black in the medical record. He confirmed heme/onc does not take primary for admissions at [facility] and per transfer center we will only be able to speak with a hospitalist when a bed is available. Heme/onc doc has limited information and was unable to tell me if patient has evidence of mets or where she is in her workup. She did have a CT chest/a/p 1 month ago but he is unable to tell me the results. He can't move her up or prioritize her on the transfer list to [facility], so we will remain on the waitlist and explore other hospitals as well. 1:30am - pocus performed to eval abdomen for possible paracentesis but she does not have a fluid collection large enough to safely tap. will send for CT chest/a/p in pursuit of septic source. 2am - left a message to Edinson at [phone]. unable to get in touch with him yet. have tried multiple numbers. Edinson called back. patient was acting confused, pretending to smoke a cigarette. staring at ceiling. upward gaze issue. patient has "some sort of blockage in a blood vessel." Oncologist is at [facility]. update given that she has infection, will need transfer. 2:30am - spoke with transfer center and provided overview of the patient. [facility] are boarding and have a long waitlist but say they will try to have a provider call back. 5am - patient is on waitlist at [facility], [facility], [facility], /[facility]. spoke again with transfer center in regards to reaching a provider. 6am - Discussed the case with Dr. Duane Cardona, hospitalist at who recommends we involve heme-onc who may be admitting to their service. F indings concerning for acute cholecystitis on RUQ ultrasound. 7am- patient endorsed to Dr. Frey for further management and care. repeat lactate downtrending. patient in NAD. Departure - Departure Disposition: 02 Transfer Acute Care Hosp Clinical Impression: Cholecystitis, Pancreatic mass, Sepsis, Anemia, Liver metastases, Meningioma, Intra-abdominal tumor
[2021-05-20] MEDS ORDERED: VANCOMYCIN INJ 1.25 GM in SODIUM CHLORIDE 0.9% 250 ML IV STA (22:44)
[2021-05-20] MEDS ORDERED: CEFEPIME 2 GM in SODIUM CHLORIDE 0.9% MINIBAG 100 ML IV STA (22:46)
[2021-05-20 22:50] LABS: BASOPHILS % (AUTO) 0.3 %; EOSINOPHILS % (AUTO) 0.1 %; HCT - HEMATOCRIT 29.2 % (37.0-47.0); HGB - HEMOGLOBIN 9.4 g/dL (12.0-16.0); LYMPHOCYTES # (AUTO) 0.5 10^3/uL (1.5-3.5); LYMPHOCYTES % (AUTO) 3.1 %; MEAN CORPUSCULAR HEMOGLOBIN 31.3 pg (27.0-31.0); MEAN CORPUSCULAR HGB CONC 32.2 g/dL (32.0-36.0); MEAN CORPUSCULAR VOLUME 97.3 fL (81.0-99.0); MEAN PLATELET VOLUME 9.6 fL (7.9-10.8); MONOCYTES # (AUTO) 0.7 10^3/uL (0.0-1.0); MONOCYTES % (AUTO) 4.6 %; NEUTROPHILS # (AUTO) 13.4 10^3/uL (1.5-6.6); NEUTROPHILS % (AUTO) 91.2 %; PLT - PLATELET COUNT 277 10^3/uL (130-450); RED CELL DISTRIBUTION WIDTH 15.8 % (12.0-15.0); WHITE BLOOD COUNT 14.6 x10^3/uL (4.8-10.8)
[2021-05-20] MEDS: IOVERSOL 320 100 ML VIAL IVP ONE (22:52)
[2021-05-20] MEDS ORDERED: VANCOMYCIN 1 GM VIAL ONE (22:53)
[2021-05-20 22:54] LABS: VBG HCO3 19.7 mmol/L (23-28); VBG PCO2 26.5 mmHg (41-51); VBG PH 7.489 (7.31-7.41); VBG PO2 71.5 mmHg (25-47); VBG TOTAL CO2 20.5 mmol/L (24-29)
[2021-05-20 22:55] LABS: VBG BASE EXCESS -2.7 mmol/L (-2 - +2); VBG OXYGEN SATURATION 95.5 % (60-80)
[2021-05-20] MEDS ORDERED: IOVERSOL 320 100 ML VIAL IVP ONE (22:56)
[2021-05-20 23:00] LABS: INR 1.3 (0.8-1.2); PT - PROTHROMBIN TIME 14.6 secs (9.9-12.6)
--- NOTE | 2021-05-20 23:00 | CT Report ---
PROCEDURE: CT brain without contrast, CT angiogram brain with contrast INDICATIONS: upward left gaze deviation CONTRAST: IV CONTRAST: Optiray 320 ml: 80 PO CONTRAST: *NO PO CONTRAST TECHNIQUE: Precontrast 4.5 mm thick angled axial sections acquired from the foramen magnum to the ve rtex. After the administration of intravenous contrast, 1 mm thick sections acquired through the Ci rcle of [place]. Postcontrast 4.5 mm thick sections then re-acquired from the foramen magnum to the v ertex. 3-dimensional hxoowrx-vprwcdnlg-hpawcxkoyn (MIP) and/or volume rendering reformats were acqui red of the central intracranial vasculature. For radiation dose reduction, the following was used: automated exposure control, adjustment of mA and/or kV according to patient size. COMPARISON: None FINDINGS: Image quality: Excellent. Anterior circulation: Intracranial internal carotid arteries are normal in size and flow. The flow within the paired anterior cerebral arteries is normal and symmetric. The flow within the middle cer ebral arteries is normal and symmetric. The anterior communicating artery is seen. No aneurysms are seen. Posterior circulation: Visualized portions of the vertebral arteries demonstrate normal caliber, and join to form a normal appearing basilar artery. Flow within the posterior cerebral arteries is norm al and symmetric. No aneurysms are seen. CSF spaces: Ventricles are normal in size and shape. Basal cisterns are patent. No extra-axial flu id collections. Brain: There is a isointense homogeneous extra-axial mass lesion with impression on the right fronta l lobe measuring 3.2 x 2.1 x 2.3 cm. No surrounding vasogenic edema or internal calcification. No mid line shift. No intracranial bleeds or masses. Bronson-white matter interface appears intact. Skull and face: Calvarium and facial bones appear intact, without suspicious lesions. Sinuses: Visualized sinuses and mastoids are clear. IMPRESSION: 1. Unremarkable CT angiogram of the brain without large vessel occlusion, aneurysm or vascular malfor mation. 2. Large right frontal meningioma measuring 3.2 x 2.1 cm. No vasogenic edema or calcification Reviewed by: Lambert Thorne MD on 05/20/2021 9:59 PM AKDT Approved by: Lambert Thorne MD on 05/20/2021 9:59 PM AKDT Station ID: [id number]
[2021-05-20] MEDS ORDERED: ACETAMINOPHEN 1,000 MG/100 ML 100 ML IV ONE (23:04)
[2021-05-20] MEDS ORDERED: SODIUM CHLORIDE 0.9% 1,500 ML IV STA (23:05)
[2021-05-20 23:06] LABS: ALBUMIN 3.2 g/dL (3.2-5.5); ALBUMIN/GLOBULIN RATIO 1.2 (1.0-2.2); BILIRUBIN,TOTAL 1.2 mg/dL (0.2-1.0); CALCIUM 9.4 mg/dL (8.5-10.3); CREATININE 0.6 mg/dL (0.4-1.0); TOTAL PROTEIN 5.8 g/dL (6.7-8.2)
--- NOTE | 2021-05-20 23:06 | CT Report ---
PROCEDURE: ANGIO NECK W INDICATIONS: code stroke CONTRAST: IV CONTRAST: Optiray 320 ml: 80 PO CONTRAST: *NO PO CONTRAST TECHNIQUE: After the administration of intravenous contrast, 1.5 mm axial sections acquired from the aortic arch to the [place] of Guy. Coronal maximum intensity projection (MIP) were then performed. For radia tion dose reduction, the following was used: automated exposure control, adjustment of mA and/or kV according to patient size. COMPARISON: None. FINDINGS: Image quality: Excellent. Carotid system: The great vessels demonstrate a conventional anatomy as they arise from the aortic a rch. The origins of the common carotid arteries appear patent. The common carotid arteries demonstr ate normal calibers and courses. The bifurcation regions appear normal bilaterally. The internal ca rotid arteries demonstrate normal caliber and course. Posterior circulation: The origins of the vertebral arteries appear patent. The more superior porti ons of the vertebral arteries demonstrate normal course and caliber. They join to form a normal appe aring basilar artery. Soft tissues: Visualized neck soft tissues demonstrate no suspicious abnormalities. The thyroid is normal in size and there are no incidental findings. Bones: No suspicious bony lesions. Visualized cervical spine appears normally aligned. IMPRESSION: Unremarkable CT angiogram of the neck. No evidence of significant stenosis, aneurysm or occlusion. The estimate of stenosis included in the report of the imaging study was calculated using the NASCET method Reviewed by: Lambert Thorne MD on 05/20/2021 10:04 PM JP Approved by: Lambert Thorne MD on 05/20/2021 10:04 PM JP Station ID: [id number]
[2021-05-20 23:08] LABS: PARTIAL THROMBOPLASTIN TIME 22.9 secs (24.9-33.3)
--- NOTE | 2021-05-20 23:20 | XRAY Report ---
PROCEDURE: Chest 1 View X-Ray INDICATIONS: Chest Pain TECHNIQUE: One view of the chest was acquired. COMPARISON: None FINDINGS: Surgical changes and devices: None. Lungs and pleura: No pleural effusions or pneumothorax. Lungs are clear. Mediastinum: Heart size enlarged. Mild vascular congestion noted. Blunting the left costophrenic angl e present. There is convex right thoracic scoliosis present. Bones and chest wall: No suspicious bony lesions. Overlying soft tissues appear unremarkable. IMPRESSION: Cardiomegaly and mild vascular congestion Thoracolumbar dextroscoliosis Reviewed by: Lambert Thorne MD on 05/20/2021 10:19 PM JP Approved by: Lambert Thorne MD on 05/20/2021 10:19 PM AKLALITHA Station ID: [id number]
[2021-05-20] MEDS ORDERED: levETIRAcetam INJ 1,000 MG in SODIUM CHLORIDE 0.9% 100ML 100 ML IV STA (23:21)
[2021-05-21] MEDS ORDERED: MORPHINE 2 MG/ML CARPUJECT IVP STA ×2 (00:07→03:12)
[2021-05-21 00:18] LABS: CORONAVIRUS 229E-RESP PCR NOT DETECTED; CORONAVIRUS HKU1-RESP PCR NOT DETECTED; CORONAVIRUS NL63-RESP PCR NOT DETECTED; CORONAVIRUS OC43-RESP PCR NOT DETECTED; HUMAN METAPNEUMOVIRUS NOT DETECTED; INFLUENZA A- RESP PCR PANEL NOT DETECTED; PARAINFLUENZA VIRUS 1 NOT DETECTED; RHINOVIRUS/ENTEROVIRUS NOT DETECTED; SARS-CoV-2 -RESP PCR PANEL NOT DETECTED
[2021-05-21 00:19] LABS: B. PARAPERTUSSIS- RESP PCR PAN NOT DETECTED; B. PERTUSSIS- RESP PCR PANEL NOT DETECTED; C. PNEUMONIAE- RESP PCR PANEL NOT DETECTED; INFLUENZA B - RESP PCR PANEL NOT DETECTED; M. PNEUMONIAE- RESP PCR PANEL NOT DETECTED; PARAINFLUENZA VIRUS 2 NOT DETECTED; PARAINFLUENZA VIRUS 3 NOT DETECTED; PARAINFLUENZA VIRUS 4 NOT DETECTED; RSV- RESP PCR PANEL NOT DETECTED
[2021-05-21 01:14] LABS: BILIRUBIN,URINE NEGATIVE (NEGATIVE); GLUCOSE, URINE (UA) NEGATIVE (NEGATIVE); KETONES,URINE (UA) NEGATIVE (NEGATIVE); LEUKOCYTE ESTERASE, URINE NEGATIVE (NEGATIVE); NITRITE,URINE NEGATIVE (NEGATIVE); OCCULT BLOOD,URINE SMALL (NEGATIVE); PROTEIN,URINE NEGATIVE (NEGATIVE); UROBILINOGEN,URINE 1 (NORMAL) E.U./dL (NORMAL)
[2021-05-21 01:17] LABS: CLARITY,URINE CLEAR (CLEAR)
[2021-05-21 01:20] LABS: BACTERIA,URINE Rare /HPF (None Seen); SQUAMOUS EPITHELIAL CELL,UR RARE Squamous (<= Few); WBC,URINE 0-3 /HPF (0-5)
[2021-05-21] MEDS ORDERED: IOVERSOL 320 100 ML VIAL IVP ONE (01:37)
[2021-05-21] MEDS: IOVERSOL 320 100 ML VIAL IVP ONE (02:11)
[2021-05-21] MEDS ORDERED: SODIUM CHLORIDE 0.9% 1,000 ML IV STA (04:04)
[2021-05-21] MEDS ORDERED: diazePAM 5 MG TABLET PO PRN (06:37)
[2021-05-21] MEDS ORDERED: VANCOMYCIN INJ 1.25 GM in SODIUM CHLORIDE 0.9% 500 ML IV SCH (07:00)
[2021-05-21] MEDS ORDERED: CEFEPIME 2 GM in SODIUM CHLORIDE 0.9% MINIBAG 100 ML IV SCH ×2 (07:00→15:00)
[2021-05-21] MEDS: ALBUTEROL 1 PUFF INH PRN (07:04)
[2021-05-21] MEDS ORDERED: VANCOMYCIN 1 GM VIAL ONE (07:06)
--- NOTE | 2021-05-21 07:37 | CT Report ---
PROCEDURE: CHEST W INDICATIONS: pancreatic cancer, sepsis CONTRAST: IV CONTRAST: Optiray 320 ml: 100 PO CONTRAST: *NO PO CONTRAST TECHNIQUE: After the administration of intravenous contrast, 1 mm axial images were acquired from the pulmonary apices through the posterior costophrenic angles. Axial 5 mm soft tissue kernel reconstructions were performed as well as 8 mm axial MIP and coronal and sagittal 5 mm reformations. For radiation dose reduction, the following was used: automated exposure control, adjustment of mA and/or kV according to patient size. COMPARISON: None. FINDINGS: Image quality: Excellent. Lungs and pleura: No acute air space opacities. Mild right basilar atelectasis. No pleural effusion s or pneumothorax. Central and peripheral airways are patent and norm al in caliber. Mediastinum: Heart size is normal. No pericardial effusion. No mediastinal or hilar adenopathy by size criteria. Thoracic aorta and central pulmonary arteries are normal in size. Esophagus is rolando l in caliber. No hiatal hernia. Bones and chest wall: No suspicious bony lesions. There is mild to moderate scoliosis. No vertebral body compression fractures. No axillary or supraclavicular adenopathy by size criteria. Thyroid gla nd . Abdomen: Visualized upper abdominal solid organs appear normal. Upper abdominal bowel loops are nor mal in caliber. IMPRESSION: 1. No acute abnormality of the chest. 2. No evidence of metastatic disease to the chest. Reviewed by: Agustin Perales on 05/21/2021 7:35 AM PDT Approved by: Agustin Perales on 05/21/2021 7:35 AM PDT Station ID: [id number]
--- NOTE | 2021-05-21 07:42 | CT Report ---
PROCEDURE: Abdomen/Pelvis W INDICATIONS: abdominal distension, pain. hx pancreatic ca CONTRAST: IV CONTRAST: Optiray 320 ml: 100 PO CONTRAST: *NO PO CONTRAST TECHNIQUE: After the administration of contrast, 5 mm thick sections acquired from the diaphragms to the sym physis. 5 mm thick coronal and sagittal reformats were acquired. For radiation dose reduction, the following was used: automated exposure control, adjustment of mA and/or kV according to patient size . COMPARISON: None. FINDINGS: Image quality: Excellent. ABDOMEN: Lung bases: Lung bases are clear. Heart size is normal. Solid organs: Interval development of numerous oval and round intermediate to low attenuation masses throughout the liver ranging from several millimeters to 12 mm. The gallbladder has multiple calcifi ed old stones. The liver demonstrates pneumobilia with interval placement of a common bile duct stent . The stent appears to be in good position. No splenomegaly or suspicious splenic lesions. There is a stable ill-defined low-attenuation mass at the pancreatic head/body junction concerning for carcinom a. Stable pancreatic ductal dilatation. The adrenal glands are normal with no nodules. No suspicious renal masses. Moderate right hydronephrosis which is new compared to the prior exam. No left hydronep hrosis. There is delayed excretion of contrast from the right ureter which still contains contrast fr om a recent CTA of the head while contrast has cleared from the left ureter. Dense colonic fecal rete ntion without obstruction. No evidence for acute appendicitis. Peritoneum and bowel: No free fluid or air. Nodes and vessels: There has been progression of upper abdominal adenopathy. No abdominal aortic aneu rysm. Miscellaneous: No ventral hernias. PELVIS: Genitourinary: Increase in the size of a complex septated cystic pelvic mass now measuring 28 x 22 x 23 cm, likely ovarian. The bladder has no acute pathology. Miscellaneous: No inguinal hernias or adenopathy. Bones: No suspicious bony lesions. No vertebral body compression fractures. IMPRESSION: 1. Increase in the size of an extremely large cystic pelvic mass consistent with a cystic ovarian michael plasm. 2. New right hydronephrosis with delayed excretion of contrast from the right ureter from recent CTA head. 3. New hepatic lesions consistent with metastatic disease. 4. Stable ill-defined low-attenuation mass at the pancreatic head/body junction concerning for carcin yessenia. Stable pancreatic ductal dilatation. 5. Pneumobilia with interval placement of a common bile duct stent. Stent appears in good position. Findings above correspond with preliminary findings by [facility]. Reviewed by: Agustin Perales on 05/21/2021 7:41 AM PDT Approved by: Agustin Perales on 05/21/2021 7:41 AM PDT Station ID: [id number]
--- NOTE | 2021-05-21 07:55 | Ultrasound Report ---
PROCEDURE: Abdomen Limited INDICATIONS: RUQ ultrasound to eval gallbladder TECHNIQUE: Real-time focused scanning was performed of the right upper quadrant, with image documentation. COMPARISON: CT abdomen pelvis 05/21/2021 FINDINGS: The liver is heterogeneous in appearance with multiple ill-defined hypoechoic mass lesions demonstrat ed corresponding to the findings on CT. A phlebotomy services representative mass within the right lobe measures up to 1. 1 x 1.0 cm a phlebotomy services representative mass in the left lobe measures up to 0.9 x 0.9 cm. The gallbladder demonstrates multiple shadowing gallstones with wall thickening measuring up to 0.4 c m and minimal pericholecystic fluid. No intrahepatic biliary ductal dilatation. The common bile duct measures up to 0.6 cm. The pancreas was not well seen due to bowel gas. The right kidney measures up to 12.2 cm. There is moderate right hydronephrosis. A small amount of ascites is visualized along the liver. IMPRESSION: 1. Cholelithiasis with gallbladder wall thickening and pericholecystic fluid suspicious for acute cho lecystitis. 2. Multiple ill-defined hepatic mass lesions corresponding to the findings on the concurrent CT likel y represent metastatic disease. 3. Moderate right hydronephrosis. Concordant with preliminary report. Reviewed by: Josh Rodgers MD on 05/21/2021 7:53 AM PDT Approved by: Josh Rodgers MD on 05/21/2021 7:53 AM PDT Station ID: [id number]
[2021-05-21] MEDS: lamoTRIgine 25 MG TABLET PO SCH (09:21)
[2021-05-21] MEDS: DULoxetine 30 MG CAPSULE PO SCH (09:21)
[2021-05-21] MEDS ORDERED: PIPERACILLIN/TAZOBACTAM 3.375 GM in SODIUM CHLORIDE 0.9% MINIBAG 100 ML IV ONE (14:00)
--- NOTE | 2021-05-21 14:11 | ED Physician Documentation ---
ED Addendum - Addendum Addendum: 05/21/21 14:09The patient remains in the ER. No apparent complications. Vital signs remained stable. The source of her problem apparently is gallbladder so I talked with Balbir from pharmacy and we opted to change her antibiotic regimen from the current cefepime/Vanco to Zosyn on a scheduled basis. She will write those orders. We have not heard any further from [facility] nor about bed status. The update this morning from the outgoing ER physician was looking likely towards tomorrow at the but we can still hope for a bed opening today.
[2021-05-21] MEDS ORDERED: LACTATED RINGERS 1,000 ML IV STA ×2 (15:09→21:33)
[2021-05-21] MEDS: PIPERACILLIN/TAZOBACTAM 3.375 GM in SODIUM CHLORIDE 0.9% MINIBAG 100 ML IV SCH (18:26)
[2021-05-21] MEDS ORDERED: DOCUSATE SODIUM 100 MG CAPSULE PO STA (18:42)
[2021-05-21] MEDS ORDERED: GLYCERIN ADULT SUPP PR STA (18:42)
[2021-05-21] MEDS: INSULIN GLARGINE 300 UNIT/3 ML PEN SUBQ SCH (21:01)
[2021-05-21] MEDS: PRAMIPEXOLE 0.25 MG TABLET PO SCH (21:01)
[2021-05-21] MEDS: PREGABALIN 100 MG CAPSULE PO SCH (21:01)
[2021-05-21] MEDS: LITHIUM 150 MG CAPSULE PO SCH ×2 (21:02→21:42)
[2021-05-22] MEDS ORDERED: ALBUTEROL NEB 2.5 MG/3 ML INH STA (01:00)
[2021-05-22] MEDS ORDERED: ACETAMINOPHEN 1,000 MG/100 ML 100 ML IV ONE (01:10)
[2021-05-22] MEDS: PIPERACILLIN/TAZOBACTAM 3.375 GM in SODIUM CHLORIDE 0.9% MINIBAG 100 ML IV SCH ×3 (02:11→18:25)
[2021-05-22] MEDS: ALBUTEROL 1 PUFF INH PRN ×2 (02:35→19:35)
[2021-05-22 02:54] LABS: BASOPHILS % (AUTO) 0.3 %; BILIRUBIN,TOTAL 1.1 mg/dL (0.2-1.0); CALCIUM 9.2 mg/dL (8.5-10.3); CREATININE 0.6 mg/dL (0.4-1.0); EOSINOPHILS % (AUTO) 0.5 %; HCT - HEMATOCRIT 29.1 % (37.0-47.0); LYMPHOCYTES % (AUTO) 5.4 %; MEAN CORPUSCULAR HEMOGLOBIN 30.6 pg (27.0-31.0); MEAN CORPUSCULAR HGB CONC 30.9 g/dL (32.0-36.0); MEAN PLATELET VOLUME 10.4 fL (7.9-10.8); MONOCYTES % (AUTO) 6.2 %; NEUTROPHILS % (AUTO) 86.2 %; PLT - PLATELET COUNT 306 10^3/uL (130-450); POTASSIUM 3.8 mmol/L (3.5-5.0); RED BLOOD COUNT 2.94 10^6/uL (4.20-5.40); RED CELL DISTRIBUTION WIDTH 15.9 % (12.0-15.0); WHITE BLOOD COUNT 26.2 x10^3/uL (4.8-10.8)
[2021-05-22 02:55] LABS: ALBUMIN 2.7 g/dL (3.2-5.5); TOTAL PROTEIN 5.4 g/dL (6.7-8.2)
[2021-05-22 03:00] LABS: ABNORMAL LYMPHS % (MANUAL) 0 %; BAND NEUTROPHILS % (MANUAL) 10 %; LYMPHOCYTES # (MANUAL) 2.6 10^3/uL (1.5-3.5); LYMPHOCYTES % (MANUAL) 10 %; MONOCYTES # (MANUAL) 1.6 10^3/uL (0.0-1.0)
[2021-05-22 03:01] LABS: DIFFERENTIAL COMMENT MANUAL DIFFERENTIAL; PLATELET ESTIMATE, MANUAL NORMAL (130-450,000) (NORMAL); RBC MORPHOLOGY (MULTIPLE) 1+ HYPOCHROMASIA (NORMAL)
[2021-05-22 03:32] LABS: ALBUMIN 2.5 g/dL (3.2-5.5); ALBUMIN/GLOBULIN RATIO 0.8 (1.0-2.2); BILIRUBIN,TOTAL 1.2 mg/dL (0.2-1.0); CALCIUM 9.6 mg/dL (8.5-10.3); CREATININE 0.5 mg/dL (0.4-1.0); POTASSIUM 3.8 mmol/L (3.5-5.0); TOTAL PROTEIN 5.6 g/dL (6.7-8.2)
--- NOTE | 2021-05-22 04:04 | ANESTHESIA PROCEDURE NOTE ---
Diagnosis: fever unknown origin, confusion Procedure: LP Consent for Procedure(s) Verified and Reviewed: Yes Height and Weight: Height 5 ft 4 in Weight (kg) 88.2 kg Body Mass Index 33.3 Vital Signs: Temp Pulse Resp BP Pulse Ox 38.5 C H 125 H 22 98/55 L 96 05/22/21 03:26 05/22/21 03:26 05/22/21 03:26 05/21/21 23:29 05/22/21 03:26 Allergies NSAIDS (Non-Steroidal Anti-Inflamma Adverse Reaction (Severe, Verified 05/20/21 22:23) stomach pain Requesting Provider: Dr. Luna Location: ER ASA classification: 4-Incapacitating disease Is this case an emergency?: Yes Anes. Monitoring and Equipment: Non-invasive BP, Pulse oximetery, Sterile prep and drape Anes. Procedure Start Time: 03:40 Anes. Procedure Stop Time: 03:50 Procedure Notes: Discussed with patient and provider. Pt agreeable to procedure. Sterile prep and drape. Single pass, successful LP. 3 mL x 4 tubes collected. Clear, CSF, Patient tolerated procedure well.
[2021-05-22 04:17] LABS: CLARITY,CSF CLEAR (CLEAR); COLOR,CSF COLORLESS (COLORLESS); CSF TUBE # CSF TUBE# 3; CSF XANTHOCHROMIA ABSENT (ABSENT); RED BLOOD CELL,CSF 1 /mm^3 (0-1); WHITE BLOOD CELL,CSF 1 /mm^3 (0-5)
[2021-05-22 04:22] LABS: CSF - GLUCOSE 72 mg/dL (45-70); TOTAL PROTEIN,CSF 23 mg/dL (15-45)
[2021-05-22 05:28] LABS: MUDS CUTOFF CONCENTRATIONS CUTOFF CONC BELOW:
[2021-05-22 05:39] LABS: AMPHETAMINE SCREEN,URINE NEGATIVE (NEGATIVE); BARBITURATE SCREEN,UR NEGATIVE (NEGATIVE); BENZODIAZEPINES SCREEN, URINE POSITIVE (NEGATIVE); COCAINE SCREEN URINE NEGATIVE (NEGATIVE); METHADONE SCREEN, URINE NEGATIVE (NEGATIVE); METHAMPHETAMINES SCREEN, URINE NEGATIVE (NEGATIVE); OPIATE SCREEN, URINE POSITIVE (NEGATIVE); OXYCODONE SCREEN, URINE NEGATIVE (NEGATIVE); PROPOXYPHENE SCREEN, URINE NEGATIVE (NEGATIVE); THC CANNABINOID SCREEN, URINE NEGATIVE (NEGATIVE); TRICYCLIC ANTIDEPRESSANT,URINE NEGATIVE (NEGATIVE)
[2021-05-22] MEDS ORDERED: LACTATED RINGERS 1,000 ML IV STA (06:18)
[2021-05-22 06:35] LABS: LITHIUM 0.25 mmol/L
[2021-05-22] MEDS ORDERED: DEXAMETHASONE 10 MG/ML VIAL IVP STA (07:35)
[2021-05-22] MEDS: DULoxetine 30 MG CAPSULE PO SCH (09:11)
[2021-05-22] MEDS: lamoTRIgine 25 MG TABLET PO SCH (09:11)
--- NOTE | 2021-05-22 10:12 | ED Physician Documentation ---
ED Addendum - Addendum Addendum: 05/22/21 10:07 Received sign out from Dr. Frey at end of his shift. Patient is awaiting placement. Early in my shift she has fever Tmax 39.4 with tachycardia and tachypnea. She has markedly slurred speech. she follows simple commands but with significant delay and often needs to be repeatedly instructed (such as testing eye tracking/movement). She answers some questions but with stammering speech, mostly with incomplete sentences (difficulty understanding when she does verbalize due to slurred speech). serial lactate levels remain normal although her wbc has significant increase (14.6 when first arrived to ED, 26.2 on my recheck during my shift). Her blood pressures have remained within normotensive range (no hypotensive readings). I consulted [employer]. Recommendations included LP, CPK, ammonia level, urine tox screen. These were all performed (anesthesia consulted for LP, graciously peformed by Dr. Cristobal), without any results yielding concerning nor diagnostic results. I discussed the case with Dr. Delio Cameron at [facility]. He was able to find documentation confirming that this patient was recently diagnosed with pancreatic adenocarcinoma via biopsy. He has no further treatment recommendations at this time (continue zosyn) and they will continue to try to find a bed for this patient at [facility]. Care of patient signed out to Dr. Chavez at end of my shift
[2021-05-22] MEDS ORDERED: ACETAMINOPHEN 325 MG TABLET PO STA (19:04)
[2021-05-22] MEDS: MORPHINE 2 MG/ML CARPUJECT IVP STA ×2 (19:11→19:12)
[2021-05-22] MEDS: LITHIUM 150 MG CAPSULE PO SCH (21:25)
[2021-05-22] MEDS: INSULIN GLARGINE 300 UNIT/3 ML PEN SUBQ SCH (21:25)
[2021-05-22] MEDS: PREGABALIN 100 MG CAPSULE PO SCH (21:26)
[2021-05-22] MEDS: PRAMIPEXOLE 0.25 MG TABLET PO SCH (21:35)
--- NOTE | 2021-05-23 00:08 | ED Physician Documentation ---
ED Addendum - Addendum Addendum: 05/23/21 00:05 Note that I d/w Dr. Carter, surgeon manager of information overnight about possible ch olecystectomy and he states with her advanced cancer she would not be a good surgical candidate. recommend transfer for perc drain if she is full code. call placed to daughter in law Tabby per family request for update. Fermín (son) who live in [place] is her and they both live in [place] and are interested in taking care of her there on hospice. Tabby (daughter in law) will be contacting family over the weekend to talk about goals of care. She has the number for Emily Mckeon and plans to contact her tuesday. She and Fermín (her ) had talked to the patient previously about whether she would want to undergo aggressive treatment/chemotherapy for her cancer but they were all waiting for more information from her oncologists at [facility] which they have not apparently gotten yet. Family members include four children: Reece (oldest child), Fermín, Kyle, and Satya. Edinson is her termite control representative fiance who is a father figure to them. Tabby is Fermín's (daughter in law of patient). 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 05/23/21 07:28
[2021-05-23] MEDS: PIPERACILLIN/TAZOBACTAM 3.375 GM in SODIUM CHLORIDE 0.9% MINIBAG 100 ML IV SCH ×3 (02:10→18:24)
[2021-05-23] MEDS ORDERED: FAMOTIDINE 20 MG TABLET PO STA (05:04)
[2021-05-23] MEDS ORDERED: MAG HYDROX/AL HYDROX/SIMETH 30 ML UDC PO STA (06:23)
[2021-05-23] MEDS: ALBUTEROL 1 PUFF INH PRN ×2 (07:22→15:03)
[2021-05-23 09:26] LABS: BASOPHILS % (AUTO) 0.2 %; EOSINOPHILS % (AUTO) 0.8 %; HCT - HEMATOCRIT 27.7 % (37.0-47.0); HGB - HEMOGLOBIN 8.5 g/dL (12.0-16.0); LYMPHOCYTES % (AUTO) 4.7 %; MEAN CORPUSCULAR HEMOGLOBIN 30.2 pg (27.0-31.0); MEAN CORPUSCULAR HGB CONC 30.7 g/dL (32.0-36.0); MEAN CORPUSCULAR VOLUME 98.6 fL (81.0-99.0); MEAN PLATELET VOLUME 9.8 fL (7.9-10.8); MONOCYTES % (AUTO) 5.3 %; NEUTROPHILS % (AUTO) 87.7 %; PLT - PLATELET COUNT 337 10^3/uL (130-450); RED BLOOD COUNT 2.81 10^6/uL (4.20-5.40); RED CELL DISTRIBUTION WIDTH 15.9 % (12.0-15.0); WHITE BLOOD COUNT 21.1 x10^3/uL (4.8-10.8)
[2021-05-23 09:27] LABS: ABNORMAL LYMPHS % (MANUAL) 0 %; BAND NEUTROPHILS % (MANUAL) 0 %
[2021-05-23] MEDS: DULoxetine 30 MG CAPSULE PO SCH (09:30)
[2021-05-23 09:38] LABS: ALBUMIN 2.5 g/dL (3.2-5.5); ALBUMIN/GLOBULIN RATIO 0.8 (1.0-2.2); BILIRUBIN,TOTAL 0.9 mg/dL (0.2-1.0); CALCIUM 9.8 mg/dL (8.5-10.3); CREATININE 0.6 mg/dL (0.4-1.0); POTASSIUM 3.6 mmol/L (3.5-5.0); TOTAL PROTEIN 5.7 g/dL (6.7-8.2)
[2021-05-23] MEDS: lamoTRIgine 25 MG TABLET PO SCH (09:40)
[2021-05-23 09:53] LABS: DIFFERENTIAL COMMENT MANUAL DIFFERENTIAL; LYMPHOCYTES # (MANUAL) 0.8 10^3/uL (1.5-3.5); LYMPHOCYTES % (MANUAL) 4 %; MONOCYTES # (MANUAL) 1.1 10^3/uL (0.0-1.0); NEUTROPHILS # (MANUAL) 19.2 10^3/uL (1.5-6.6); PLATELET ESTIMATE, MANUAL NORMAL (130-450,000) (NORMAL); PLATELET MORPHOLOGY NORMAL APPEARANCE (NORMAL); RBC MORPHOLOGY (MULTIPLE) 1+ HYPOCHROMASIA (NORMAL)
--- NOTE | 2021-05-23 10:03 | ED Physician Documentation ---
ED Addendum - Addendum Addendum: 05/23/21 10:03 Patient is a 60-year-old female who is being treated for sepsis. Appears to be likely secondary to cholecystitis. The patient has a known large ovarian mass. Patient has a recently diagnosed pancreatic adenocarcinoma and newly discovered hepatic metastases on 05/21/21 (2 days ago here). Also appears to have a likely intracranial meningioma. I discussed the case with Dr. Simms, the patient's gynecology oncologist and reviewed the new findings. She states that the patient was being planned for potential Whipple procedure, but now given her liver metastases, she is likely not a candidate for this. She recommends speaking with the patient about hospice. Dr. Mosqueda did introduce the idea of hospice to the patient and family last night. I had a long discussion with the patient this morning about her goals of care. She would like to spend as much time as possible with her family. This would likely involve relocating her to [place]. I spoke with the surgeon, Dr. Ray who states that the patient is not a surgical candidate, that she would potentially be a candidate for a cholecystostomy tube, but even this would be likely too aggressive for this patient given her comorbidities and current state. We will continue her on IV fluids and IV antibiotics until the patient and family reach a final decision regarding her hospice status. We will admit her for continued hydration and antibiotics. Social work is consulted to have discussions with the patient and family regarding hospice. They are strongly considering hospice at this point and I feel that is appropriate for this patient. Discussed the case with Dr. Saenz, hospitalist who states that he does not feel the patient needs admission but she may need transfer. Explained that there is no indication for transfer at this time and request he come and personally evaluate the patient. This document was made in part using voice recognition software. While efforts are made to proofread this document, sound alike and grammatical errors may occur. Departure - Departure Disposition: 66 [facility] DC/Xfer Clinical Impression: Cholecystitis, Pancreatic mass, Liver metastases, Meningioma, Intra-abdominal tumor Sepsis Qualifiers: Sepsis type: sepsis due to unspecified organism Sepsis acute organ dysfunction status: unspecified Qualified Code(s): A41.9 - Sepsis, unspecified organism Anemia Qualifiers: Anemia type: unspecified type Qualified Code(s): D64.9 - Anemia, unspecified Fever Qualifiers: Fever type: unspecified Qualified Code(s): R50.9 - Fever, unspecified Condition: Stable
[2021-05-23] MEDS ORDERED: ACETAMINOPHEN 325 MG TABLET PO STA ×2 (15:23→23:26)
--- NOTE | 2021-05-23 19:13 | ED Physician Documentation ---
ED Addendum - Addendum Addendum: 05/23/21 19:12 Patient endorsed to me by Dr. Westfall awaiting hospitalist consult for admission. He asked me to check in with our hospitalists in regards to consult. d/w Dr. Saenz who was unable to consult in and see the patient during the day. he will endorse the patient to Dr. Kelly so she can evaluate for possible admission. 05/23/21 19:14 05/23/21 20:07 Dr. Saenz went to the bedside and confirmed with patient she would like to go home and be with family with comfort-oriented interventions. After his evaluation he reiterated to me that she does not meet criteria for admission and he cannot accept for admit given her advanced disease with DNR/DNI comfort measures status, also given conversation he had today with utilization management. He suggested contacting [facility] to get them involved in the patient's case. Will call Ashley Castaneda to touch base. d/w daughter in law Tabby and patient's son Fermín. Tabby and Fermín would like patient to be DNR/DNI comfort measures. They would like to explore the option of patient going to [place] to live with them for her hospice care but would like to honor her wishes if she wants to stay on [place]. 05/23/21 21:10 d/w Ashley Castaneda, KAREN who states patient should be admitted to med surg. 05/23/21 21:29 d/w Dr. Kelly, hospitalist regarding admission. She would like to call Dr. Seanz for further clarification of the case and have him contact Ashley Castaneda regarding the patient and they will get back to us. 05/23/21 21:31 05/23/21 22:04 d/w Ashley Castaneda over the phone. She still recommends admission to med/surg but our hospitalists feel strongly this is an inappropriate admission therefore she will remain in the ED.
--- NOTE | 2021-05-23 20:20 | CONSULTATION NOTE ---
Referring Provider Name of Referring Provider:: Dr Siddhartha Westfall Consult Date: 05/23/21 Chief Complaint - Chief Complaint Chief Complaint: sepsis History of Present Illness - Admitted From Admitted From:: Consultation in the ED - History Obtained From Records Reviewed: yes History obtained from: medical record, ED physician and patient - History of Present Illness HPI Comment/Other: Patient is a 60-year-old female with medical history significant for pancreatic cancer with new metastasis to the liver who presented to the ED on 05/20/2021 Complaint of altered mental status and a fixed left upward gaze deviation. She was also reported to have fevers by EMS. Work-up included a CT and CT angio of the head and neck which showed a large right frontal meningioma measuring 3.2 x 2.1 cm. There was no vasogenic edema or calcification noted. There was no occlusion, aneurysm or vascular malformation noted. This was discussed with telestroke who recommended Keppra, MRI follow-up. Maintained that the patient was not a candidate for TPA. 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 Pneumobilia with interval placement of a common bile duct stent was also reported. Stable ill-defined low-attenuation mass at the pancreatic head/body junction concerning for carcinoma. There was stable pancreatic ductal di latation. Several facilities in the general area was contacted for possible transfer however due to high capacity/volume there was no availability for transfer. It is reported that the patient was finally accepted at [facility] contingent on a bed availability for transfer. The patient has been in the emergency department since 05/20/2021 awaiting transfer. The hospitalist service was contacted today for possible admission to [facility] Upon presentation to bedside patient appeared to be resting calmly. She has a significantly distended abdomen and appears weak. She rates her pain 4 out of 10 and indicates it is mostly in her abdomen. She is alert and oriented x4. The patient is able to relay accurately her understanding of her medical condition. She feels her breathing is worse than when she initially came to the hospital. She normally does not use supplemental oxygen which she currently was on. After her summary of her understanding of her medical condition when asked what her thoughts were regarding the next plan of action she expressed that she did not think she had many choices. She stated that she wished to be home with her family. In seeking clarification of her statement I expressed to the patient that my understanding of her statement was that she did not wish to pursue any further treatment and would like to focus on comfort and spending what time she had left with her loved ones. She said yes to this assessment. On further questioning as to where she wished to spend her final days she expressed that she would like to be on [facility] with her family and her boyfriend Edinson History - Past Medical History Cardiovascular: reports: Hypertension Respiratory: reports: Asthma Psych: reports: Depression, Anxiety, Panic attacks, Claustrophobia Musculoskeletal: reports: Fibromyalgia, Fatigue, Scoliosis, Chronic back pain MRSA Hx?: No Other Past Medical History: pancreatic cancer - Past Surgical History /WINDOWS SYSTEMS ARCHITECT: reports: Hysterectomy HEENT: reports: Tonsil/Adenoidectomy - Family & Social History Family History Comment/Other: None pertinent to her presentation Living arrangement: At home Living Situation: With spouse/s.o. Social History Notes: Patient is a daily smoker. She does not consume alcohol or recreational substances. - POLST Patient has POLST: No Meds/Allgy - Home Medications Home Medications: Ambulatory Orders Medication Instructions Recorded Confirmed DULoxetine [Cymbalta] 30 mg PO DAILY 10/17/13 05/20/21 Lamotrigine 50 mg PO DAILY 10/17/13 05/20/21 Pregabalin [Lyrica] 150 - 300 mg PO DAILY PM 10/17/13 05/20/21 Mosquero Carbonate 900 mg PO QPM 06/28/14 05/20/21 Lurasidone HCl [Latuda] 40 mg PO QPM 06/28/14 05/20/21 diazePAM [Diazepam] 5 mg PO QID 06/28/14 05/20/21 Albuterol Sulf [Ventolin Hfa 2 puffs Q4H PRN 10/24/19 05/20/21 Inhaler] Fluticasone [Flonase] 1 spray DAILY 10/24/19 05/20/21 HYDROcod/ACETAM 5/325 [[place] 5/325] 1 each PO Q4H #12 tablet 10/24/19 05/20/21 Pramipexole [Mirapex] 0.5 mg QPM 10/24/19 05/20/21 Insulin Glargine [Lantus Solostar] 10 unit SQ HS 05/21/21 05/21/21 - Allergies Allergies/Adverse Reactions: Allergies Allergy/AdvReac Type Severity Reaction Status Date / Time NSAIDS (Non-Steroidal AdvReac Severe stomach Verified 05/20/21 22:23 Anti-Inflamma pain Review of Systems - Other Findings Other Findings: A 12 point review of system was done and found to be negative except was mentioned in the HPI. Exam - Vital Signs Vital Signs: Vital Signs x48h Temp Pulse Resp BP Pulse Ox 05/23/21 18:14 37.7 C 119 H 28 H 115/65 95 05/23/21 16:48 37.9 C 117 H 23 112/62 91 L 05/23/21 15:30 37.9 C 109 H 30 H 117/63 93 05/23/21 13:33 38.0 C H 112 H 25 H 101/62 97 - Physical Exam General Appearance: positive: Alert, Mild distress, Moderate distress Eyes Bilateral: positive: PERRL, No scleral icterus ENT: positive: ENT inspection nml Neck: positive: No JVD, Trachea midline Respiratory: positive: Chest non-tender, No respiratory distress. negative: Wheezes, Rales, Rhonchi Cardiovascular: positive: Tachycardia Abdomen: positive: Other (Significantly distended abdomen) Back: positive: Nml inspection Skin: positive: Pallor Extremities: positive: Non-tender, Full ROM, Nml appearance Neurologic/Psychiatric: positive: Oriented x3, Depressed mood/affect (Tearful) Conclusion/Plan - Problem List (1) Pancreatic cancer Conclusion/Plan: Patient has history of pancreatic cancer. CT is of the abdomen/pelvis done during this presentation to the ED showed new hepatic lesions likely suspicious of metastases. It was relayed by the ED physician Dr. Ramirez that he had contacted the patient's gynecologic oncologist (Dr Simms). There had been Previous discussions of possibly undergoing a Whipple's procedure. Dr. Simms stated that given the liver metastasis she was likely not a candidate for the Whipple's procedure. The patient currently wishes to go on hospice/ comfort measures and to be with her family on [facility]. Given this direction of her care, the patient will be best served by direct transition to the care of hospice at home. care services manager is involved. Their efforts are greatly appreciated in facilitating her transition to hospice at home. As such patient does not meet criteria for admission to the hospital. (2) Sepsis Conclusion/Plan: On 05/20/2021 patient's white blood cell count was 14.6. 2 days after it was 26.2 and today 05/23/2021 it is 21.1. She had a temperature of 38 C today afternoon around 1 PM. She has also been tachycardic with a heart rate between 100-120. Sepsis is likely secondary to cholecystitis Dr Ramirez discussed the case with Dr. Smith the general surgeon Who maintains that the patient is not a surgical candidate. That the patient will potentially be a candidate for a cholecystostomy tube. However he highlighted that this would likely be too aggressive for the patient given her comorbidities and current clinical state. He advised consideration of hospice. The patient has subsequently decided to go on hospice. care services manager helping to facilitate this transition Qualifiers: Sepsis type: sepsis due to unspecified organism Sepsis acute organ dysfunction status: unspecified Qualified Code(s): A41.9 - Sepsis, unspecified organism (3) Cholecystitis Conclusion/Plan: On 05/20/2021 patient's white blood cell count was 14.6. 2 days after it was 26.2 and today 05/23/2021 it is 21.1. She had a temperature of 38 C today afternoon around 1 PM. She has also been tachycardic with a heart rate between 100-120. Dr Ramirez discussed the case with Dr. Smith the general surgeon Who maintains that the patient is not a surgical candidate. That the patient will potentially be a candidate for a cholecystostomy tube. However he highlighted that this would likely be too aggressive for the patient given her comorbidities and current clinical state. He advised consideration of hospice. The patient has subsequently decided to go on hospice. 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 Patient has opted for hospice care. (5) Meningioma Conclusion/Plan: Patient was Accepted for transfer to the [facility] contingent on the bed becoming available. However since that decision patient has decided to go on hospice. Social work assisting to facilitate this process. - Lab Results Fish Bones: 05/23/21 09:18 05/23/21 09:18
[2021-05-23] MEDS: PRAMIPEXOLE 0.25 MG TABLET PO SCH (21:22)
[2021-05-23] MEDS: PREGABALIN 100 MG CAPSULE PO SCH (21:25)
[2021-05-23] MEDS: LITHIUM 150 MG CAPSULE PO SCH (21:28)
[2021-05-23] MEDS: INSULIN GLARGINE 300 UNIT/3 ML PEN SUBQ SCH (21:29)
[2021-05-24] MEDS: LITHIUM 150 MG CAPSULE PO SCH ×2 (01:00→21:15)
[2021-05-24] MEDS: PIPERACILLIN/TAZOBACTAM 3.375 GM in SODIUM CHLORIDE 0.9% MINIBAG 100 ML IV SCH ×3 (02:11→19:00)
[2021-05-24] MEDS ORDERED: DEXTROSE 5%-0.45% NACL 1,000 ML IV STA ×2 (05:54→23:14)
[2021-05-24] MEDS: ACETAMINOPHEN 650 MG SUPP PR PRN (06:04)
[2021-05-24] MEDS: DULoxetine 30 MG CAPSULE PO SCH (11:30)
[2021-05-24] MEDS: lamoTRIgine 25 MG TABLET PO SCH (11:30)
--- NOTE | 2021-05-24 15:58 | ED Physician Documentation ---
ED Addendum - Addendum Addendum: 05/24/21 15:54 Patient was signed out to me at change of shift by Dr. Mosqueda, after being held in the emergency department for several days. The patient has metastatic pancreatic cancer, possible ovarian cancer, and a large meningioma which is exerting mass-effect and causing acute neurologic symptoms. She also has cholecystitis/cholangitis. Numerous attempts have been made, unsuccessfully, to transfer this patient or admit her to the hospital here. At this point in time, she is in the ED awaiting a hospice consult and with possible plan to go back to family in [place]. Family has made her DNR/DNI with comfort measures for now. The patient has been stable today. Nursing staff reports that she is mildly worse today than she was yesterday, as far as mental status and ability to function for herself. She has been afebrile today. She continues on antibiotics for cholangitis. At this point in time, we will continue current management and await the hospice consult tomorrow.
[2021-05-24] MEDS ORDERED: MORPHINE 2 MG/ML CARPUJECT IVP STA ×2 (16:57→23:14)
[2021-05-24] MEDS: PREGABALIN 100 MG CAPSULE PO SCH (21:15)
[2021-05-24] MEDS: PRAMIPEXOLE 0.25 MG TABLET PO SCH (21:15)
[2021-05-24] MEDS: INSULIN GLARGINE 300 UNIT/3 ML PEN SUBQ SCH (21:15)
--- NOTE | 2021-05-24 21:20 | ED Physician Documentation ---
ED Addendum - Addendum Addendum: 05/24/21 21:17 Patient with worsening clinical status due to sepsis 2/2 cholecystitis, now DNR/DNI comfort measures per patient and family. Patient stated she ideally wanted to go back to her home with Edinson on [address] with home hospice. [place] also an option where her second son Gonzalez and MARY GRACE Mcnair live. Per note today: "[facility] will need a call in the morning to see when they can open the patient and to set up info session at the hospital. Patient will need equipment (hospital bed) ordered through them. [facility] hospice would not be able to open until ."
[2021-05-25] MEDS: PIPERACILLIN/TAZOBACTAM 3.375 GM in SODIUM CHLORIDE 0.9% MINIBAG 100 ML IV SCH ×3 (02:29→17:18)
[2021-05-25] MEDS: DULoxetine 30 MG CAPSULE PO SCH (10:13)
[2021-05-25] MEDS: lamoTRIgine 25 MG TABLET PO SCH (10:13)
[2021-05-25] MEDS: MORPHINE 2 MG/ML CARPUJECT IVP PRN ×2 (17:18→20:18)
[2021-05-25] MEDS: INSULIN GLARGINE 300 UNIT/3 ML PEN SUBQ SCH (21:14)
[2021-05-25] MEDS: LITHIUM 150 MG CAPSULE PO SCH (21:14)
[2021-05-25] MEDS: PRAMIPEXOLE 0.25 MG TABLET PO SCH (21:14)
[2021-05-25] MEDS: PREGABALIN 100 MG CAPSULE PO SCH (21:14)
[2021-05-26] MEDS: MORPHINE 2 MG/ML CARPUJECT IVP PRN ×9 (02:00→23:07)
[2021-05-26] MEDS: PIPERACILLIN/TAZOBACTAM 3.375 GM in SODIUM CHLORIDE 0.9% MINIBAG 100 ML IV SCH ×3 (02:18→18:29)
[2021-05-26] MEDS: DEXTROSE 5%-0.9% NACL 1,000 ML IV STA ×2 (06:01→15:37)
[2021-05-26] MEDS: DULoxetine 30 MG CAPSULE PO SCH (08:25)
[2021-05-26] MEDS: lamoTRIgine 25 MG TABLET PO SCH (08:26)
[2021-05-26] MEDS: ACETAMINOPHEN 650 MG SUPP PR PRN (12:40)
[2021-05-26] MEDS: LORazepam 2 MG/ML VIAL IVP PRN (17:28)
[2021-05-26 17:42] LABS: B. PARAPERTUSSIS- RESP PCR PAN NOT DETECTED; B. PERTUSSIS- RESP PCR PANEL NOT DETECTED; C. PNEUMONIAE- RESP PCR PANEL NOT DETECTED; CORONAVIRUS 229E-RESP PCR NOT DETECTED; CORONAVIRUS HKU1-RESP PCR NOT DETECTED; CORONAVIRUS NL63-RESP PCR NOT DETECTED; CORONAVIRUS OC43-RESP PCR NOT DETECTED; HUMAN METAPNEUMOVIRUS NOT DETECTED; INFLUENZA A- RESP PCR PANEL NOT DETECTED; INFLUENZA B - RESP PCR PANEL NOT DETECTED; M. PNEUMONIAE- RESP PCR PANEL NOT DETECTED; PARAINFLUENZA VIRUS 1 NOT DETECTED; PARAINFLUENZA VIRUS 2 NOT DETECTED; PARAINFLUENZA VIRUS 3 NOT DETECTED; PARAINFLUENZA VIRUS 4 NOT DETECTED; RHINOVIRUS/ENTEROVIRUS NOT DETECTED; RSV- RESP PCR PANEL NOT DETECTED; SARS-CoV-2 -RESP PCR PANEL NOT DETECTED
[2021-05-26] MEDS: INSULIN GLARGINE 300 UNIT/3 ML PEN SUBQ SCH (20:14)
[2021-05-26] MEDS: LITHIUM 150 MG CAPSULE PO SCH (21:08)
[2021-05-26] MEDS: PREGABALIN 100 MG CAPSULE PO SCH (21:08)
[2021-05-26] MEDS: PRAMIPEXOLE 0.25 MG TABLET PO SCH (21:08)
[2021-05-27] MEDS: PIPERACILLIN/TAZOBACTAM 3.375 GM in SODIUM CHLORIDE 0.9% MINIBAG 100 ML IV SCH ×3 (02:00→16:16)
[2021-05-27] MEDS ORDERED: DEXTROSE 5%-0.9% NACL 1,000 ML IV STA ×2 (02:10→12:29)
[2021-05-27] MEDS: MORPHINE 2 MG/ML CARPUJECT IVP PRN ×3 (02:15→21:38)
[2021-05-27 02:58] LABS: CALCIUM 9.3 mg/dL (8.5-10.3); CREATININE 0.4 mg/dL (0.4-1.0); POTASSIUM 3.9 mmol/L (3.5-5.0)
[2021-05-27] MEDS: DULoxetine 30 MG CAPSULE PO SCH (09:11)
[2021-05-27] MEDS: lamoTRIgine 25 MG TABLET PO SCH (09:11)
[2021-05-27] MEDS: LORazepam 2 MG/ML VIAL IVP PRN ×2 (11:21→21:37)
--- NOTE | 2021-05-27 14:13 | ED Physician Documentation ---
ED Addendum - Addendum Addendum: Patient continues to have decreased mental status today. She has been transitioned to comfort care here in the ED. She is awaiting placement with hospice at [facility] in [place]. She is receiving IV fluids and morphine here. She has nonverbal today. She does respond to pain. Eyes are open and staring to the left. No seizure activity. 05/27/21 15:18 Apparently the bed that was reserved for her today is no longer available, plan will be to transfer to hospice tomorrow. Departure - Departure Clinical Impression: Cholecystitis, Pancreatic mass, Liver metastases, Meningioma, Intra-abdominal tumor, Comfort measures only status Sepsis Qualifiers: Sepsis type: sepsis due to unspecified organism Sepsis acute organ dysfunction status: unspecified Qualified Code(s): A41.9 - Sepsis, unspecified organism Anemia Qualifiers: Anemia type: unspecified type Qualified Code(s): D64.9 - Anemia, unspecified Fever Qualifiers: Fever type: unspecified Qualified Code(s): R50.9 - Fever, unspecified Condition: Poor Results - Vitals Vitals: Vital Signs - 24 hr 05/26/21 05/26/21 05/26/21 14:57 16:07 17:41 Temperature 99.4 C H 99.6 C H Heart Rate 100 100 103 H Respiratory 20 18 16 Rate Blood Pressure 98/52 L 112/70 115/59 L O2 Saturation 100 95 93 05/26/21 05/26/21 05/26/21 19:00 20:15 22:00 Temperature 37.2 C 37.1 C 37.4 C Heart Rate 97 94 100 Respiratory 18 18 18 Rate Blood Pressure 102/60 110/60 104/62 O2 Saturation 96 95 95 05/27/21 05/27/21 05/27/21 00:00 02:00 04:00 Temperature 37.1 C 37.2 C 37.2 C Heart Rate 104 H 108 H 114 H Respiratory 18 19 20 Rate Blood Pressure 116/72 128/66 123/70 O2 Saturation 95 94 95 05/27/21 05/27/21 05/27/21 05:22 07:00 10:44 Temperature 37.3 C 37.1 C Heart Rate 124 H 123 H 139 H Respiratory 21 21 25 H Rate Blood Pressure 131/75 H 149/89 H 150/58 H O2 Saturation 93 95 92 05/27/21 05/27/21 11:10 11:58 Temperature Heart Rate 145 H 125 H Respiratory 28 H 29 H Rate Blood Pressure 148/71 H O2 Saturation 100 Oxygen O2 Source 2 Oxygen Flow Rate 2 - Labs Labs: Microbiology 05/20/21 22:43 Blood Culture - Final Blood - Right Arm NO GROWTH AFTER 5 DAYS 05/20/21 22:35 Blood Culture - Final Blood - Right Iv-Start NO GROWTH AFTER 5 DAYS 05/22/21 03:50 Gram Stain - Final Cerebral Spinal Fluid CSF Culture - Final 05/21/21 02:02 Occult Blood - Final Stool Laboratory Tests 05/20/21 05/20/21 05/20/21 22:35 22:35 22:35 WBC Corrected WBC RBC Hgb Hct MCV MCH MCHC RDW Plt Count MPV Neut # (Auto) Lymph # (Auto) [place] # (Auto) Eos # (Auto) Baso # (Auto) Absolute Nucleated RBC Total Counted Band Neuts % (Manual) Reactive Lymphs % (Man) Abnorm Lymph % (Manual) Metamyelocytes % Myelocytes % Promyelocytes % Blast Cells % Plasma Cell % (Manual) Other Cells % Nucleated RBC % Neutrophils # (Manual) Lymphocytes # (Manual) Monocytes # (Manual) Eosinophils # (Manual) Basophils # (Manual) Nucleated RBCs Differential Comment Manual Slide Review WBC Morphology Platelet Estimate Platelet Morphology RBC Morph Micro Appear PT INR APTT VBG pH VBG pCO2 VBG pO2 VBG HCO3 VBG Total CO2 VBG O2 Saturation VBG Base Excess Sodium 131 L Potassium 4.0 Chloride 101 Carbon Dioxide 20 L Anion Gap 10.0 BUN 12 Creatinine 0.6 Estimated GFR (MDRD) 103 Glucose 115 H Lactic Acid 1.1 Calcium 9.4 Total Bilirubin 1.2 H AST 21 ALT 16 Alkaline Phosphatase 151 H Ammonia Total Creatine Kinase CK-MB (CK-2) Troponin I High Sens 3.7 Total Protein 5.8 L Albumin 3.2 Globulin 2.6 Albumin/Globulin Ratio 1.2 Lipase 64 H Urine Color Urine Clarity Urine pH Ur Specific [place] Urine Protein Urine Glucose (UA) Urine Ketones Urine Occult Blood Urine Nitrite Urine Bilirubin Urine Urobilinogen Ur Leukocyte Esterase Urine RBC Urine WBC Ur Squamous Epith Cells Urine Bacteria Urine Culture Comments CSF Color CSF Clarity Xanthrochromic CSF WBC CSF RBC CSF Cell Count Tube # CSF Glucose CSF Total Protein Nasal Adenovirus (PCR) Nasal B. parapertussis DNA (PCR) Nasal Coronavir 229E PCR Nasal Coronavir HKU1 PCR Nasal Coronavir NL63 PCR Nasal Coronavir OC43 PCR Nasal Enterovir/Rhinovir PCR Nasal Influenza B PCR Nasal Influenza A PCR Nasal Parainfluen 1 PCR Nasal Parainfluen 2 PCR Nasal Parainfluen 3 PCR Nasal Parainfluen 4 PCR Nasal RSV (PCR) Nasal B.pertussis DNA PCR Nasal C.pneumoniae (PCR) Octavio Human Metapneumo PCR Nasal M.pneumoniae (PCR) Nasal SARS-CoV-2 (PCR) Last Dose Date Last Dose Time Urine Opiates Screen Ur Oxycodone Screen Urine Methadone Screen Ur Propoxyphene Screen Ur Barbiturates Screen Ur Tricyclics Screen Ur Phencyclidine Scrn Ur Amphetamine Screen U Methamphetamines Scrn U Benzodiazepines Scrn [place] Urine Cocaine Screen U Cannabinoids Screen Slides for Path Review 05/20/21 05/20/21 05/20/21 22:35 22:35 22:43 WBC 14.6 H Corrected WBC RBC 3.00 L Hgb 9.4 L Hct 29.2 L MCV 97.3 MCH 31.3 H MCHC 32.2 RDW 15.8 H Plt Count 277 MPV 9.6 Neut # (Auto) 13.4 H Lymph # (Auto) 0.5 L [place] # (Auto) 0.7 Eos # (Auto) 0.0 Baso # (Auto) 0.0 Absolute Nucleated RBC 0.00 Total Counted Band Neuts % (Manual) Reactive Lymphs % (Man) Abnorm Lymph % (Manual) Metamyelocytes % Myelocytes % Promyelocytes % Blast Cells % Plasma Cell % (Manual) Other Cells % Nucleated RBC % 0.0 Neutrophils # (Manual) Lymphocytes # (Manual) Monocytes # (Manual) Eosinophils # (Manual) Basophils # (Manual) Nucleated RBCs Differential Comment Manual Slide Review WBC Morphology Platelet Estimate Platelet Morphology RBC Morph Micro Appear PT 14.6 H INR 1.3 H APTT 22.9 L VBG pH 7.489 H VBG pCO2 26.5 L VBG pO2 71.5 H VBG HCO3 19.7 L VBG Total CO2 20.5 L VBG O2 Saturation 95.5 H VBG Base Excess -2.7 L Sodium Potassium Chloride Carbon Dioxide Anion Gap BUN Creatinine Estimated GFR (MDRD) Glucose Lactic Acid Calcium Total Bilirubin AST ALT Alkaline Phosphatase Ammonia Total Creatine Kinase CK-MB (CK-2) Troponin I High Sens Total Protein Albumin Globulin Albumin/Globulin Ratio Lipase Urine Color Urine Clarity Urine pH Ur Specific [place] Urine Protein Urine Glucose (UA) Urine Ketones Urine Occult Blood Urine Nitrite Urine Bilirubin Urine Urobilinogen Ur Leukocyte Esterase Urine RBC Urine WBC Ur Squamous Epith Cells Urine Bacteria Urine Culture Comments CSF Color CSF Clarity Xanthrochromic CSF WBC CSF RBC CSF Cell Count Tube # CSF Glucose CSF Total Protein Nasal Adenovirus (PCR) Nasal B. parapertussis DNA (PCR) Nasal Coronavir 229E PCR Nasal Coronavir HKU1 PCR Nasal Coronavir NL63 PCR Nasal Coronavir OC43 PCR Nasal Enterovir/Rhinovir PCR Nasal Influenza B PCR Nasal Influenza A PCR Nasal Parainfluen 1 PCR Nasal Parainfluen 2 PCR Nasal Parainfluen 3 PCR Nasal Parainfluen 4 PCR Nasal RSV (PCR) Nasal B.pertussis DNA PCR Nasal C.pneumoniae (PCR) Octavio Human Metapneumo PCR Nasal M.pneumoniae (PCR) Nasal SARS-CoV-2 (PCR) Last Dose Date Last Dose Time Urine Opiates Screen Ur Oxycodone Screen Urine Methadone Screen Ur Propoxyphene Screen Ur Barbiturates Screen Ur Tricyclics Screen Ur Phencyclidine Scrn Ur Amphetamine Screen U Methamphetamines Scrn U Benzodiazepines Scrn [place] Urine Cocaine Screen U Cannabinoids Screen Slides for Path Review 05/20/21 05/21/21 05/21/21 23:04 00:28 00:29 WBC Cancelled Corrected WBC Cancelled RBC Cancelled Hgb Cancelled Hct Cancelled MCV Cancelled MCH Cancelled MCHC Cancelled RDW Cancelled Plt Count Cancelled MPV Cancelled Neut # (Auto) Cancelled Lymph # (Auto) Cancelled [place] # (Auto) Cancelled Eos # (Auto) Cancelled Baso # (Auto) Cancelled Absolute Nucleated RBC Cancelled Total Counted Cancelled Band Neuts % (Manual) Cancelled Reactive Lymphs % (Man) Cancelled Abnorm Lymph % (Manual) Cancelled Metamyelocytes % Cancelled Myelocytes % Cancelled Promyelocytes % Cancelled Blast Cells % Cancelled Plasma Cell % (Manual) Cancelled Other Cells % Cancelled Nucleated RBC % Cancelled Neutrophils # (Manual) Cancelled Lymphocytes # (Manual) Cancelled Monocytes # (Manual) Cancelled Eosinophils # (Manual) Cancelled Basophils # (Manual) Cancelled Nucleated RBCs Cancelled Differential Comment Cancelled Manual Slide Review Cancelled WBC Morphology Cancelled Platelet Estimate Cancelled Platelet Morphology Cancelled RBC Morph Micro Appear Cancelled PT INR APTT VBG pH VBG pCO2 VBG pO2 VBG HCO3 VBG Total CO2 VBG O2 Saturation VBG Base Excess Sodium Potassium Chloride Carbon Dioxide Anion Gap BUN Creatinine Estimated GFR (MDRD) Glucose Lactic Acid Calcium Total Bilirubin AST ALT Alkaline Phosphatase Ammonia Total Creatine Kinase CK-MB (CK-2) Troponin I High Sens Total Protein Albumin 3.0 L Globulin Albumin/Globulin Ratio Lipase Urine Color Urine Clarity Urine pH Ur Specific [place] Urine Protein Urine Glucose (UA) Urine Ketones Urine Occult Blood Urine Nitrite Urine Bilirubin Urine Urobilinogen Ur Leukocyte Esterase Urine RBC Urine WBC Ur Squamous Epith Cells Urine Bacteria Urine Culture Comments CSF Color CSF Clarity Xanthrochromic CSF WBC CSF RBC CSF Cell Count Tube # CSF Glucose CSF Total Protein Nasal Adenovirus (PCR) NOT DETECTED Nasal B. parapertussis DNA (PCR) NOT DETECTED Nasal Coronavir 229E PCR NOT DETECTED Nasal Coronavir HKU1 PCR NOT DETECTED Nasal Coronavir NL63 PCR NOT DETECTED Nasal Coronavir OC43 PCR NOT DETECTED Nasal Enterovir/Rhinovir PCR NOT DETECTED Nasal Influenza B PCR NOT DETECTED Nasal Influenza A PCR NOT DETECTED Nasal Parainfluen 1 PCR NOT DETECTED Nasal Parainfluen 2 PCR NOT DETECTED Nasal Parainfluen 3 PCR NOT DETECTED Nasal Parainfluen 4 PCR NOT DETECTED Nasal RSV (PCR) NOT DETECTED Nasal B.pertussis DNA PCR NOT DETECTED Nasal C.pneumoniae (PCR) NOT DETECTED Octavio Human Metapneumo PCR NOT DETECTED Nasal M.pneumoniae (PCR) NOT DETECTED Nasal SARS-CoV-2 (PCR) NOT DETECTED Last Dose Date Last Dose Time Urine Opiates Screen Ur Oxycodone Screen Urine Methadone Screen Ur Propoxyphene Screen Ur Barbiturates Screen Ur Tricyclics Screen Ur Phencyclidine Scrn Ur Amphetamine Screen U Methamphetamines Scrn U Benzodiazepines Scrn [place] Urine Cocaine Screen U Cannabinoids Screen Slides for Path Review Cancelled 05/21/21 05/21/21 05/21/21 00:29 00:59 06:00 WBC Corrected WBC RBC Hgb Hct MCV MCH MCHC RDW Plt Count MPV Neut # (Auto) Lymph # (Auto) [place] # (Auto) Eos # (Auto) Baso # (Auto) Absolute Nucleated RBC Total Counted Band Neuts % (Manual) Reactive Lymphs % (Man) Abnorm Lymph % (Manual) Metamyelocytes % Myelocytes % Promyelocytes % Blast Cells % Plasma Cell % (Manual) Other Cells % Nucleated RBC % Neutrophils # (Manual) Lymphocytes # (Manual) Monocytes # (Manual) Eosinophils # (Manual) Basophils # (Manual) Nucleated RBCs Differential Comment Manual Slide Review WBC Morphology Platelet Estimate Platelet Morphology RBC Morph Micro Appear PT INR APTT VBG pH VBG pCO2 VBG pO2 VBG HCO3 VBG Total CO2 VBG O2 Saturation VBG Base Excess Sodium Cancelled Potassium Cancelled Chloride Cancelled Carbon Dioxide Cancelled Anion Gap Cancelled BUN Cancelled Creatinine Cancelled Estimated GFR (MDRD) Cancelled Glucose Cancelled Lactic Acid 0.8 Calcium Cancelled Total Bilirubin Cancelled AST Cancelled ALT Cancelled Alkaline Phosphatase Cancelled Ammonia Total Creatine Kinase CK-MB (CK-2) Troponin I High Sens Total Protein Cancelled Albumin Cancelled Globulin Cancelled Albumin/Globulin Ratio Cancelled Lipase Cancelled Urine Color YELLOW Urine Clarity CLEAR Urine pH 7.0 Ur Specific [place] 1.010 Urine Protein NEGATIVE Urine Glucose (UA) NEGATIVE Urine Ketones NEGATIVE Urine Occult Blood SMALL H Urine Nitrite NEGATIVE Urine Bilirubin NEGATIVE Urine Urobilinogen 1 (NORMAL) Ur Leukocyte Esterase NEGATIVE Urine RBC 6-10 H Urine WBC 0-3 Ur Squamous Epith Cells RARE Squamous Urine Bacteria Rare Urine Culture Comments NOT INDICATED CSF Color CSF Clarity Xanthrochromic CSF WBC CSF RBC CSF Cell Count Tube # CSF Glucose CSF Total Protein Nasal Adenovirus (PCR) Nasal B. parapertussis DNA (PCR) Nasal Coronavir 229E PCR Nasal Coronavir HKU1 PCR Nasal Coronavir NL63 PCR Nasal Coronavir OC43 PCR Nasal Enterovir/Rhinovir PCR Nasal Influenza B PCR Nasal Influenza A PCR Nasal Parainfluen 1 PCR Nasal Parainfluen 2 PCR Nasal Parainfluen 3 PCR Nasal Parainfluen 4 PCR Nasal RSV (PCR) Nasal B.pertussis DNA PCR Nasal C.pneumoniae (PCR) Octavio Human Metapneumo PCR Nasal M.pneumoniae (PCR) Nasal SARS-CoV-2 (PCR) Last Dose Date Last Dose Time Urine Opiates Screen Ur Oxycodone Screen Urine Methadone Screen Ur Propoxyphene Screen Ur Barbiturates Screen Ur Tricyclics Screen Ur Phencyclidine Scrn Ur Amphetamine Screen U Methamphetamines Scrn U Benzodiazepines Scrn [place] Urine Cocaine Screen U Cannabinoids Screen Slides for Path Review 05/22/21 05/22/21 05/22/21 00:29 00:29 00:29 WBC 26.2 H Corrected WBC RBC 2.94 L Hgb 9.0 L Hct 29.1 L MCV 99.0 MCH 30.6 MCHC 30.9 L RDW 15.9 H Plt Count 306 MPV 10.4 Neut # (Auto) PACK CHANGER Lymph # (Auto) PACK CHANGER [place] # (Auto) PACK CHANGER Eos # (Auto) PACK CHANGER Baso # (Auto) PACK CHANGER Absolute Nucleated RBC PACK CHANGER Total Counted 100 Band Neuts % (Manual) 10 Reactive Lymphs % (Man) Abnorm Lymph % (Manual) 0 Metamyelocytes % Myelocytes % Promyelocytes % Blast Cells % Plasma Cell % (Manual) Other Cells % Nucleated RBC % PACK CHANGER Neutrophils # (Manual) 22.0 H Lymphocytes # (Manual) 2.6 Monocytes # (Manual) 1.6 H Eosinophils # (Manual) 0.0 Basophils # (Manual) 0.0 Nucleated RBCs Differential Comment MANUAL DIFFERENTIAL Manual Slide Review WBC Morphology Platelet Estimate NORMAL (130-450,000) Platelet Morphology RBC Morph Micro Appear 1+ HYPOCHROMASIA PT INR APTT VBG pH VBG pCO2 VBG pO2 VBG HCO3 VBG Total CO2 VBG O2 Saturation VBG Base Excess Sodium 138 Potassium 3.8 Chloride 110 Carbon Dioxide 19 L Anion Gap 9.0 BUN 12 Creatinine 0.6 Estimated GFR (MDRD) 103 Glucose 106 H Lactic Acid 1.5 Calcium 9.2 Total Bilirubin 1.1 H AST 18 ALT 15 Alkaline Phosphatase 124 H Ammonia Total Creatine Kinase CK-MB (CK-2) Troponin I High Sens Total Protein 5.4 L Albumin 2.7 L Globulin 2.7 Albumin/Globulin Ratio 1.0 Lipase 24 Urine Color Urine Clarity Urine pH Ur Specific [place] Urine Protein Urine Glucose (UA) Urine Ketones Urine Occult Blood Urine Nitrite Urine Bilirubin Urine Urobilinogen Ur Leukocyte Esterase Urine RBC Urine WBC Ur Squamous Epith Cells Urine Bacteria Urine Culture Comments CSF Color CSF Clarity Xanthrochromic CSF WBC CSF RBC CSF Cell Count Tube # CSF Glucose CSF Total Protein Nasal Adenovirus (PCR) Nasal B. parapertussis DNA (PCR) Nasal Coronavir 229E PCR Nasal Coronavir HKU1 PCR Nasal Coronavir NL63 PCR Nasal Coronavir OC43 PCR Nasal Enterovir/Rhinovir PCR Nasal Influenza B PCR Nasal Influenza A PCR Nasal Parainfluen 1 PCR Nasal Parainfluen 2 PCR Nasal Parainfluen 3 PCR Nasal Parainfluen 4 PCR Nasal RSV (PCR) Nasal B.pertussis DNA PCR Nasal C.pneumoniae (PCR) Octavio Human Metapneumo PCR Nasal M.pneumoniae (PCR) Nasal SARS-CoV-2 (PCR) Last Dose Date Last Dose Time Urine Opiates Screen Ur Oxycodone Screen Urine Methadone Screen Ur Propoxyphene Screen Ur Barbiturates Screen Ur Tricyclics Screen Ur Phencyclidine Scrn Ur Amphetamine Screen U Methamphetamines Scrn U Benzodiazepines Scrn [place] Urine Cocaine Screen U Cannabinoids Screen Slides for Path Review 05/22/21 05/22/21 05/22/21 03:07 03:07 03:50 WBC Corrected WBC RBC Hgb Hct MCV MCH MCHC RDW Plt Count MPV Neut # (Auto) Lymph # (Auto) [place] # (Auto) Eos # (Auto) Baso # (Auto) Absolute Nucleated RBC Total Counted Band Neuts % (Manual) Reactive Lymphs % (Man) Abnorm Lymph % (Manual) Metamyelocytes % Myelocytes % Promyelocytes % Blast Cells % Plasma Cell % (Manual) Other Cells % Nucleated RBC % Neutrophils # (Manual) Lymphocytes # (Manual) Monocytes # (Manual) Eosinophils # (Manual) Basophils # (Manual) Nucleated RBCs Differential Comment Manual Slide Review WBC Morphology Platelet Estimate Platelet Morphology RBC Morph Micro Appear PT INR APTT VBG pH VBG pCO2 VBG pO2 VBG HCO3 VBG Total CO2 VBG O2 Saturation VBG Base Excess Sodium 140 Potassium 3.8 Chloride 113 H Carbon Dioxide 19 L Anion Gap 8.0 BUN 13 Creatinine 0.5 Estimated GFR (MDRD) 127 Glucose 108 H Lactic Acid Calcium 9.6 Total Bilirubin 1.2 H AST 17 ALT 16 Alkaline Phosphatase 127 H Ammonia 30.3 Total Creatine Kinase CK-MB (CK-2) Troponin I High Sens Total Protein 5.6 L Albumin 2.5 L Globulin 3.1 Albumin/Globulin Ratio 0.8 L Lipase 22 Urine Color Urine Clarity Urine pH Ur Specific [place] Urine Protein Urine Glucose (UA) Urine Ketones Urine Occult Blood Urine Nitrite Urine Bilirubin Urine Urobilinogen Ur Leukocyte Esterase Urine RBC Urine WBC Ur Squamous Epith Cells Urine Bacteria Urine Culture Comments CSF Color COLORLESS CSF Clarity CLEAR Xanthrochromic ABSENT CSF WBC 1 CSF RBC 1 CSF Cell Count Tube # CSF TUBE# 3 CSF Glucose 72 H CSF Total Protein 23 Nasal Adenovirus (PCR) Nasal B. parapertussis DNA (PCR) Nasal Coronavir 229E PCR Nasal Coronavir HKU1 PCR Nasal Coronavir NL63 PCR Nasal Coronavir OC43 PCR Nasal Enterovir/Rhinovir PCR Nasal Influenza B PCR Nasal Influenza A PCR Nasal Parainfluen 1 PCR Nasal Parainfluen 2 PCR Nasal Parainfluen 3 PCR Nasal Parainfluen 4 PCR Nasal RSV (PCR) Nasal B.pertussis DNA PCR Nasal C.pneumoniae (PCR) Octavio Human Metapneumo PCR Nasal M.pneumoniae (PCR) Nasal SARS-CoV-2 (PCR) Last Dose Date Last Dose Time Urine Opiates Screen Ur Oxycodone Screen Urine Methadone Screen Ur Propoxyphene Screen Ur Barbiturates Screen Ur Tricyclics Screen Ur Phencyclidine Scrn Ur Amphetamine Screen U Methamphetamines Scrn U Benzodiazepines Scrn [place] Urine Cocaine Screen U Cannabinoids Screen Slides for Path Review 05/22/21 05/22/21 05/22/21 05:20 05:35 05:35 WBC Corrected WBC RBC Hgb Hct MCV MCH MCHC RDW Plt Count MPV Neut # (Auto) Lymph # (Auto) [place] # (Auto) Eos # (Auto) Baso # (Auto) Absolute Nucleated RBC Total Counted Band Neuts % (Manual) Reactive Lymphs % (Man) Abnorm Lymph % (Manual) Metamyelocytes % Myelocytes % Promyelocytes % Blast Cells % Plasma Cell % (Manual) Other Cells % Nucleated RBC % Neutrophils # (Manual) Lymphocytes # (Manual) Monocytes # (Manual) Eosinophils # (Manual) Basophils # (Manual) Nucleated RBCs Differential Comment Manual Slide Review WBC Morphology Platelet Estimate Platelet Morphology RBC Morph Micro Appear PT INR APTT VBG pH VBG pCO2 VBG pO2 VBG HCO3 VBG Total CO2 VBG O2 Saturation VBG Base Excess Sodium Potassium Chloride Carbon Dioxide Anion Gap BUN Creatinine Estimated GFR (MDRD) Glucose Lactic Acid Calcium Total Bilirubin AST ALT Alkaline Phosphatase Ammonia Total Creatine Kinase 18 L CK-MB (CK-2) 0.5 L Troponin I High Sens Total Protein Albumin Globulin Albumin/Globulin Ratio Lipase Urine Color Urine Clarity Urine pH Ur Specific [place] Urine Protein Urine Glucose (UA) Urine Ketones Urine Occult Blood Urine Nitrite Urine Bilirubin Urine Urobilinogen Ur Leukocyte Esterase Urine RBC Urine WBC Ur Squamous Epith Cells Urine Bacteria Urine Culture Comments CSF Color CSF Clarity Xanthrochromic CSF WBC CSF RBC CSF Cell Count Tube # CSF Glucose CSF Total Protein Nasal Adenovirus (PCR) Nasal B. parapertussis DNA (PCR) Nasal Coronavir 229E PCR Nasal Coronavir HKU1 PCR Nasal Coronavir NL63 PCR Nasal Coronavir OC43 PCR Nasal Enterovir/Rhinovir PCR Nasal Influenza B PCR Nasal Influenza A PCR Nasal Parainfluen 1 PCR Nasal Parainfluen 2 PCR Nasal Parainfluen 3 PCR Nasal Parainfluen 4 PCR Nasal RSV (PCR) Nasal B.pertussis DNA PCR Nasal C.pneumoniae (PCR) Octav[place] Human Metapneumo PCR Nasal M.pneumoniae (PCR) Nasal SARS-CoV-2 (PCR) Last Dose Date Last Dose Time Urine Opiates Screen POSITIVE H Ur Oxycodone Screen NEGATIVE Urine Methadone Screen NEGATIVE Ur Propoxyphene Screen NEGATIVE Ur Barbiturates Screen NEGATIVE Ur Tricyclics Screen NEGATIVE Ur Phencyclidine Scrn NEGATIVE Ur Amphetamine Screen NEGATIVE U Methamphetamines Scrn NEGATIVE U Benzodiazepines Scrn POSITIVE H [place] Urine Cocaine Screen NEGATIVE U Cannabinoids Screen NEGATIVE Slides for Path Review 05/22/21 05/22/21 05/23/21 05:35 05:35 09:18 WBC 21.1 H Corrected WBC RBC 2.81 L Hgb 8.5 L Hct 27.7 L MCV 98.6 MCH 30.2 MCHC 30.7 L RDW 15.9 H Plt Count 337 MPV 9.8 Neut # (Auto) Not Reportable Lymph # (Auto) Not Reportable [place] # (Auto) Not Reportable Eos # (Auto) Not Reportable Baso # (Auto) Not Reportable Absolute Nucleated RBC Not Reportable Total Counted 100 Band Neuts % (Manual) 0 Reactive Lymphs % (Man) Abnorm Lymph % (Manual) 0 Metamyelocytes % Myelocytes % Promyelocytes % Blast Cells % Plasma Cell % (Manual) Other Cells % Nucleated RBC % Not Reportable Neutrophils # (Manual) 19.2 H Lymphocytes # (Manual) 0.8 L Monocytes # (Manual) 1.1 H Eosinophils # (Manual) 0.0 Basophils # (Manual) 0.0 Nucleated RBCs Differential Comment MANUAL DIFFERENTIAL Manual Slide Review WBC Morphology Platelet Estimate NORMAL (130-450,000) Platelet Morphology NORMAL APPEARANCE RBC Morph Micro Appear 1+ HYPOCHROMASIA PT INR APTT VBG pH VBG pCO2 VBG pO2 VBG HCO3 VBG Total CO2 VBG O2 Saturation VBG Base Excess Sodium Potassium Chloride Carbon Dioxide Anion Gap BUN Creatinine Estimated GFR (MDRD) Glucose Lactic Acid 0.9 Calcium Total Bilirubin AST ALT Alkaline Phosphatase Ammonia Total Creatine Kinase CK-MB (CK-2) Troponin I High Sens Total Protein Albumin Globulin Albumin/Globulin Ratio Lipase Urine Color Urine Clarity Urine pH Ur Specific [place] Urine Protein Urine Glucose (UA) Urine Ketones Urine Occult Blood Urine Nitrite Urine Bilirubin Urine Urobilinogen Ur Leukocyte Esterase Urine RBC Urine WBC Ur Squamous Epith Cells Urine Bacteria Urine Culture Comments CSF Color CSF Clarity Xanthrochromic CSF WBC CSF RBC CSF Cell Count Tube # CSF Glucose CSF Total Protein Nasal Adenovirus (PCR) Nasal B. parapertussis DNA (PCR) Nasal Coronavir 229E PCR Nasal Coronavir HKU1 PCR Nasal Coronavir NL63 PCR Nasal Coronavir OC43 PCR Nasal Enterovir/Rhinovir PCR Nasal Influenza B PCR Nasal Influenza A PCR Nasal Parainfluen 1 PCR Nasal Parainfluen 2 PCR Nasal Parainfluen 3 PCR Nasal Parainfluen 4 PCR Nasal RSV (PCR) Nasal B.pertussis DNA PCR Nasal C.pneumoniae (PCR) Octav[place] Human Metapneumo PCR Nasal M.pneumoniae (PCR) Nasal SARS-CoV-2 (PCR) Last Dose Date 05/21/21 Last Dose Time 2100 Urine Opiates Screen Ur Oxycodone Screen Urine Methadone Screen Ur Propoxyphene Screen Ur Barbiturates Screen Ur Tricyclics Screen Ur Phencyclidine Scrn Ur Amphetamine Screen U Methamphetamines Scrn U Benzodiazepines Scrn [place] 0.25 Urine Cocaine Screen U Cannabinoids Screen Slides for Path Review 05/23/21 05/23/21 05/26/21 09:18 09:18 16:06 WBC Corrected WBC RBC Hgb Hct MCV MCH MCHC RDW Plt Count MPV Neut # (Auto) Lymph # (Auto) [place] # (Auto) Eos # (Auto) Baso # (Auto) Absolute Nucleated RBC Total Counted Band Neuts % (Manual) Reactive Lymphs % (Man) Abnorm Lymph % (Manual) Metamyelocytes % Myelocytes % Promyelocytes % Blast Cells % Plasma Cell % (Manual) Other Cells % Nucleated RBC % Neutrophils # (Manual) Lymphocytes # (Manual) Monocytes # (Manual) Eosinophils # (Manual) Basophils # (Manual) Nucleated RBCs Differential Comment Manual Slide Review WBC Morphology Platelet Estimate Platelet Morphology RBC Morph Micro Appear PT INR APTT VBG pH VBG pCO2 VBG pO2 VBG HCO3 VBG Total CO2 VBG O2 Saturation VBG Base Excess Sodium 143 Potassium 3.6 Chloride 112 H Carbon Dioxide 21 Anion Gap 10.0 BUN 14 Creatinine 0.6 Estimated GFR (MDRD) 103 Glucose 161 H Lactic Acid 1.8 Calcium 9.8 Total Bilirubin 0.9 AST 40 ALT 32 Alkaline Phosphatase 109 Ammonia Total Creatine Kinase CK-MB (CK-2) Troponin I High Sens Total Protein 5.7 L Albumin 2.5 L Globulin 3.2 Albumin/Globulin Ratio 0.8 L Lipase 28 Urine Color Urine Clarity Urine pH Ur Specific [place] Urine Protein Urine Glucose (UA) Urine Ketones Urine Occult Blood Urine Nitrite Urine Bilirubin Urine Urobilinogen Ur Leukocyte Esterase Urine RBC Urine WBC Ur Squamous Epith Cells Urine Bacteria Urine Culture Comments CSF Color CSF Clarity Xanthrochromic CSF WBC CSF RBC CSF Cell Count Tube # CSF Glucose CSF Total Protein Nasal Adenovirus (PCR) NOT DETECTED Nasal B. parapertussis DNA (PCR) NOT DETECTED Nasal Coronavir 229E PCR NOT DETECTED Nasal Coronavir HKU1 PCR NOT DETECTED Nasal Coronavir NL63 PCR NOT DETECTED Nasal Coronavir OC43 PCR NOT DETECTED Nasal Enterovir/Rhinovir PCR NOT DETECTED Nasal Influenza B PCR NOT DETECTED Nasal Influenza A PCR NOT DETECTED Nasal Parainfluen 1 PCR NOT DETECTED Nasal Parainfluen 2 PCR NOT DETECTED Nasal Parainfluen 3 PCR NOT DETECTED Nasal Parainfluen 4 PCR NOT DETECTED Nasal RSV (PCR) NOT DETECTED Nasal B.pertussis DNA PCR NOT DETECTED Nasal C.pneumoniae (PCR) NOT DETECTED Octavio Human Metapneumo PCR NOT DETECTED Nasal M.pneumoniae (PCR) NOT DETECTED Nasal SARS-CoV-2 (PCR) NOT DETECTED Last Dose Date Last Dose Time Urine Opiates Screen Ur Oxycodone Screen Urine Methadone Screen Ur Propoxyphene Screen Ur Barbiturates Screen Ur Tricyclics Screen Ur Phencyclidine Scrn Ur Amphetamine Screen U Methamphetamines Scrn U Benzodiazepines Scrn [place] Urine Cocaine Screen U Cannabinoids Screen Slides for Path Review 05/27/21 02:20 WBC Corrected WBC RBC Hgb Hct MCV MCH MCHC RDW Plt Count MPV Neut # (Auto) Lymph # (Auto) [place] # (Auto) Eos # (Auto) Baso # (Auto) Absolute Nucleated RBC Total Counted [place] % (Manual) Reactive Lymphs % (Man) Abnorm Lymph % (Manual) Metamyelocytes % Myelocytes % Promyelocytes % Blast Cells % Plasma Cell % (Manual) Other Cells % Nucleated RBC % Neutrophils # (Manual) Lymphocytes # (Manual) Monocytes # (Manual) Eosinophils # (Manual) Basophils # (Manual) Nucleated RBCs Differential Comment Manual Slide Review WBC Morphology Platelet Estimate Platelet Morphology RBC Morph Micro Appear PT INR APTT VBG pH VBG pCO2 VBG pO2 VBG HCO3 VBG Total CO2 VBG O2 Saturation VBG Base Excess Sodium 144 Potassium 3.9 Chloride 113 H Carbon Dioxide 23 Anion Gap 8.0 BUN 13 Creatinine 0.4 Estimated GFR (MDRD) 164 Glucose 126 H Lactic Acid Calcium 9.3 Total Bilirubin AST ALT Alkaline Phosphatase Ammonia Total Creatine Kinase CK-MB (CK-2) Troponin I High Sens Total Protein Albumin Globulin Albumin/Globulin Ratio Lipase Urine Color Urine Clarity Urine pH Ur Specific [place] Urine Protein Urine Glucose (UA) Urine Ketones Urine Occult Blood Urine Nitrite Urine Bilirubin Urine Urobilinogen Ur Leukocyte Esterase Urine RBC Urine WBC Ur Squamous Epith Cells Urine Bacteria Urine Culture Comments CSF Color CSF Clarity Xanthrochromic CSF WBC CSF RBC CSF Cell Count Tube # CSF Glucose CSF Total Protein Nasal Adenovirus (PCR) Nasal B. parapertussis DNA (PCR) Nasal Coronavir 229E PCR Nasal Coronavir HKU1 PCR Nasal Coronavir NL63 PCR Nasal Coronavir OC43 PCR Nasal Enterovir/Rhinovir PCR Nasal Influenza B PCR Nasal Influenza A PCR Nasal Parainfluen 1 PCR Nasal Parainfluen 2 PCR Nasal Parainfluen 3 PCR Nasal Parainfluen 4 PCR Nasal RSV (PCR) Nasal B.pertussis DNA PCR Nasal C.pneumoniae (PCR) Octav[place] Human Metapneumo PCR Nasal M.pneumoniae (PCR) Nasal SARS-CoV-2 (PCR) Last Dose Date Last Dose Time Urine Opiates Screen Ur Oxycodone Screen Urine Methadone Screen Ur Propoxyphene Screen Ur Barbiturates Screen Ur Tricyclics Screen Ur Phencyclidine Scrn Ur Amphetamine Screen U Methamphetamines Scrn U Benzodiazepines Scrn [place] Urine Cocaine Screen U Cannabinoids Screen Slides for Path Review
--- NOTE | 2021-05-27 18:55 | ED Physician Documentation ---
ED Addendum - Addendum Addendum: The patient was accepted to [place] in [facility] hospice program. COBRA forms completed. She will be transferred in the morning. Accepting provider: Dr. Amy Shannon Departure - Departure Disposition: 02 Transfer Acute Care Hosp Clinical Impression: Cholecystitis, Pancreatic mass, Liver metastases, Meningioma, Intra-abdominal tumor, Comfort measures only status Sepsis Qualifiers: Sepsis type: sepsis due to unspecified organism Sepsis acute organ dysfunction status: unspecified Qualified Code(s): A41.9 - Sepsis, unspecified organism Anemia Qualifiers: Anemia type: unspecified type Qualified Code(s): D64.9 - Anemia, unspecified Fever Qualifiers: Fever type: unspecified Qualified Code(s): R50.9 - Fever, unspecified Condition: Poor
[2021-05-27] MEDS: LITHIUM 150 MG CAPSULE PO SCH (21:36)
[2021-05-27] MEDS: PREGABALIN 100 MG CAPSULE PO SCH (21:37)
[2021-05-27] MEDS: PRAMIPEXOLE 0.25 MG TABLET PO SCH (21:37)
[2021-05-27] MEDS: INSULIN GLARGINE 300 UNIT/3 ML PEN SUBQ SCH (22:14)
[2021-05-28] MEDS: PIPERACILLIN/TAZOBACTAM 3.375 GM in SODIUM CHLORIDE 0.9% MINIBAG 100 ML IV SCH (02:23)
[2021-05-28] MEDS ORDERED: SODIUM CHLORIDE FLUSH 0.9% 10 ML SYRINGE IVP STA (05:50)
[2021-05-28] MEDS: MORPHINE 2 MG/ML CARPUJECT IVP PRN (08:23)
[2021-05-28] MEDS: LORazepam 2 MG/ML VIAL IVP PRN (08:23)
[2021-05-28 09:08] VITALS: BP 143/87
[2021-05-28] MEDS: DULoxetine 30 MG CAPSULE PO SCH (09:08)
[2021-05-28] MEDS: lamoTRIgine 25 MG TABLET PO SCH (09:08)
--- NOTE | 2021-05-28 09:09 | ED Physician Documentation ---
ED Addendum - Addendum Addendum: 05/28/21 09:08 Patient going to [facility] for direct admission to inpatient hospice. Discussed with transport crew that she is DNR but they needed a POLST filled out to follow DNR if she were to on the way and a POLST form was completed by me with DNR and comfort focused treatment based on previously well documented conversations with patient and family. Patient examined at bedside, she is basically unresponsive, she is tachypneic and tachycardic and appears ill. Anticipate de ath within hours to days. Disposition: Transfer to [facility] inpatient hospice Condition: Terminal Diagnoses: 1. Pancreatic cancer with metastases 2. Ascending cholangitis 3. DNR/DNI 4. Transition to hospice care.
== END 2021-05-28 09:23 | disposition short-term general hospital (02) ==
LOC: EDUNIT# → ED 22:14
DX: A41.9 Sepsis, unspecified organism (principal); K80.00 Calculus of gallbladder with acute cholecystitis without obstruction; D32.0 Benign neoplasm of cerebral meninges; C25.9 Malignant neoplasm of pancreas, unspecified; C78.7 Secondary malignant neoplasm of liver and intrahepatic bile duct; N83.209 Unspecified ovarian cyst, unspecified side; D64.9 Anemia, unspecified; R06.09 Other forms of dyspnea; I10 Essential (primary) hypertension; E11.9 Type 2 diabetes mellitus without complications; Z79.4 Long term (current) use of insulin; J45.909 Unspecified asthma, uncomplicated; F17.200 Nicotine dependence, unspecified, uncomplicated; Z20.822 Contact with and (suspected) exposure to COVID-19; Z66 Do not resuscitate
CPT/HCPCS: 36415; 70496; 70498; 71045; 71260; 74177; 76705; 80048; 80053; 80178; 80306; 81001; 82040; 82140; 82272; 82550; 82553; 82803; 82945; 83605; 83690; 84157; 84484; 85025; 85610; 85730; 86695; 86696; 87040; 87070; 87205; 87631; 89051; 93005; 94640; 96365; 96366; 96367; 96368; 96375; 96376; 99285; A9270; J0131; J1815; J2060; J3370; J7120; Q9967; 0202U; 81599; 82270; 82274; 87086; 87529